=== PATIENT | male | born 1975 ===

== ENCOUNTER → 2020-02-21 14:18 | Outpatient (BNVA) | payer MEDICAID, SELFPAY | PROVIDERS: PCP Internal Medicine; Visit Provider Urology | DX: Z76.89 Persons encountering health services in other specified circumstances (principal) ==

== ENCOUNTER → 2020-02-28 15:25 | Outpatient (BNVA) | payer MEDICAID, SELFPAY | PROVIDERS: PCP Internal Medicine; Visit Provider Urology | DX: Z48.811 Encounter for surgical aftercare following surgery on the nervous system (principal); N39.41 Urge incontinence | CPT/HCPCS: 99212 ==

== ENCOUNTER 2020-02-29 06:24 | Outpatient (REF) | payer MEDICAID, SELFPAY | END 2020-02-29 06:25 | disposition home or self-care (01) | LOC: HO.LAB 06:24 | PROVIDERS: PCP Internal Medicine; Visit Provider Internal Medicine | DX: Z20.828 Contact with and (suspected) exposure to other viral communicable diseases (principal) | CPT/HCPCS: 87635 ==

== ENCOUNTER 2020-03-13 07:05 | Day surgery (SDC) | payer MEDICAID, SELFPAY ==
[2020-03-01 15:33] VITALS: BMI 26.1
--- NOTE | 2020-03-12 08:49 | HO.ANESPROP2 ---
Documented by User: Ashley Moreno 03/12/20 08:51 HPI - Anesthesia Eval Consult details Narrative: 44yo M for Interstim Generator Implant s/p interstim trial 01/2020 with [employer] PMFSH Past Medical History Medical History Abdominal lipoma Asthma Chronic back pain Depression Mood disorder Right hemiparesis Urinary retention Family History Family History Father Colon polyp Mother Colon polyp Hypertension Surgical History Surgical History H/O toe surgery History of ankle surgery History of prostate surgery Hx of colonoscopy Hx of exploratory laparotomy Social History Social History (Updated 03/12/20 @ 08:51 by Ashley Moreno) Smoking Status: Never smoker Use of substances other than those prescribed or required for medical reasons: Yes Substance Use Type: Marijuana Substance Use Type Other:: Marijuana- Oil- Vapes States Medical Substance Use Frequency: Daily Advance Directives: No Advance Directives Information Provided: No Advance Directives on File: No Recently lost weight without trying: No Meds Allergies Allergy/AdvReac Type Severity Reaction Status Date / Time ENVIROMENTAL Allergy Intermediate SNEEZING, Uncoded 03/01/20 15:26 COUGH, SOB Home Medications Medication Instructions Recorded Confirmed Type amitriptyline 75 mg tablet 75 mg PO BEDTIME 02/18/20 03/01/20 History clonazepam 0.5 mg tablet 0.5 mg PO BID 02/18/20 03/01/20 History duloxetine 30 mg capsule,delayed 30 mg PO DAILY 02/18/20 03/01/20 History release fluticasone propionate 50 1 spray INTRANASAL DAILY 02/18/20 03/01/20 History mcg/actuation nasal spray,suspension ibuprofen 800 mg tablet 800 mg PO Q8H 02/18/20 03/01/20 History loratadine 10 mg tablet 10 mg PO DAILY 02/18/20 03/01/20 History oxybutynin chloride 15 mg 15 mg PO DAILY 02/18/20 03/01/20 History tablet,extended release 24 hr tadalafil 20 mg tablet 20 mg PO DAILY PRN 02/18/20 03/01/20 History albuterol sulfate [Ventolin HFA] 2 puff INHALATION 6XD PRN 03/01/20 03/01/20 History Exam Exam Date and Time: March 12, 2020 0849 Height,Weight and Vital Signs: Height 6 ft Weight 87.3 kg Assessment and Plan Assessment Anesthesia Assessment: Chart Reviewed Documented by User: Fang Robbins 03/13/20 09:06 PMFSH Past Medical History Medical History Abdominal lipoma Asthma Chronic back pain Depression Mood disorder Right hemiparesis Urinary retention Family History Family History Father Colon polyp Mother Colon polyp Hypertension Surgical History Surgical History H/O toe surgery History of ankle surgery History of prostate surgery Hx of colonoscopy Hx of exploratory laparotomy Social History Social History (Updated 03/12/20 @ 08:51 by Ashley Moreno) Smoking Status: Never smoker Use of substances other than those prescribed or required for medical reasons: Yes Substance Use Type: Marijuana Substance Use Type Other:: Marijuana- Oil- Vapes States Medical Substance Use Frequency: Daily Advance Directives: No Advance Directives Information Provided: No Advance Directives on File: No Recently lost weight without trying: No Meds Allergies Allergy/AdvReac Type Severity Reaction Status Date / Time ENVIROMENTAL Allergy Intermediate SNEEZING, Uncoded 03/01/20 15:26 COUGH, SOB Home Medications Medication Instructions Recorded Confirmed Type amitriptyline 75 mg tablet 75 mg PO BEDTIME 02/18/20 03/01/20 History clonazepam 0.5 mg tablet 0.5 mg PO BID 02/18/20 03/01/20 History duloxetine 30 mg capsule,delayed 30 mg PO DAILY 02/18/20 03/01/20 History release fluticasone propionate 50 1 spray INTRANASAL DAILY 02/18/20 03/01/20 History mcg/actuation nasal spray,suspension ibuprofen 800 mg tablet 800 mg PO Q8H 02/18/20 03/01/20 History loratadine 10 mg tablet 10 mg PO DAILY 02/18/20 03/01/20 History oxybutynin chloride 15 mg 15 mg PO DAILY 02/18/20 03/01/20 History tablet,extended release 24 hr tadalafil 20 mg tablet 20 mg PO DAILY PRN 02/18/20 03/01/20 History albuterol sulfate [Ventolin HFA] 2 puff INHALATION 6XD PRN 03/01/20 03/01/20 History Exam Airway Mallampati Class: II TM Dist: >3cm Neck ROM: Full Assessment and Plan Assessment Anesthesia Assessment: Anesthesia Plan Discussed and Chart Reviewed Final Anesthetic Review NPO: Yes ASA Class: II Final Preanesthetic Review: No Changes in Pt Med Stat, Meds/Allgs Chart Reviewed, Consent Obtained/Reviewed and Anes Risks/Benef Reviewed Patient Risk: Low Procedure Risk: Low Assessment/Block/Sedation in SS: Assess/Block/Sedation-SS Anesthetic Plan Anesthetic Plan: MAC: Disposition: Standard PACU
[2020-03-13 07:57] VITALS: BP 121/73; PULSE 62; RESP 18; TEMP 36.1; O2SAT 96
[2020-03-13] MEDS: Albuterol Sulfate (0.083%) 2.5 MG/3 ML VIAL.NEB INHALE (08:13)
[2020-03-13] MEDS: ceFAZolin Sodium/Dextrose,Iso 2 GM/50 ML PIGGYBACK IV (08:16)
[2020-03-13] MEDS: Lactated Ringers 1,000 ML 100 ML IVCONT (08:16)
--- NOTE | 2020-03-13 08:24 | MHC.SHP ---
Pre-Procedural Eval Section A The patient is an INPATIENT: No Changes since office visit: Yes Patient answered all questions; No Cold of Flu in the past 2 weeks, No New Medical Problems and No Changes in Medication Section B Chief Complaint: URINARY RETENTION Details of Present Illness: urinary retention Relevant Family History (Specify if Yes): No Relevant Social History: None Present Medications: see Short Stay Collaborative assessment Medical History: No relevant PMH History of Previous Operations: No relevant previous surgery (stage 1 intersdtim) Allergies: Allergies Allergy/AdvReac Type Severity Reaction Status Date / Time ENVIROMENTAL Allergy Intermediate SNEEZING, Uncoded 03/01/20 15:26 COUGH, SOB Review of Systems Sugical H&P ROS: Negative: Constitution, Cardiovascular, Respiratory, Neurological, Psychiatric, Hem-Onc, Allergic/Immunologic, Gastrointestinal, Genitourinary, Musculoskeletal, Integumentary, Endocrine and Eyes/Ears/Nose/Throat Exam Surgical H&P Exam: Normal: HEENT, Normal: Heart, Normal: Lungs, Normal: Extremities, Normal: Abdomen, Normal: Skin and Normal: Neurological Plan Diagnosis/Plan: Change (remove interstim 1) Patient has been examined and remains a candidate for the planned procedure
--- NOTE | 2020-03-13 09:46 | OP_ITS ---
SURGEON: Vitaly Snyder III, MD PREOPERATIVE DIAGNOSIS: Urinary retention. POSTOPERATIVE DIAGNOSIS: Failed InterStim stage I. PROCEDURE PERFORMED: Removal of InterStim stage I. ESTIMATED BLOOD LOSS: None. COMPLICATIONS: None. ANESTHESIA: MAC, local. ASSISTANTS: SPECIMENS: None. DESCRIPTION OF PROCEDURE: The patient was taken to the operating room. After adequate anesthesia was obtained, had a time-out done demonstrating correct patient and correct procedure. Following this, the patient underwent injection of local in previous right buttock incision. Bovie cautery was used to dissect down to the wires. Wires were identified, brought out through the incision, and truncated, circulating nurse removed the external lead. The patient had irrigation of his wounds and subsequently had closure of his wounds. The patient tolerated the procedure well. There were no complications. MD WENCESLAO Boyce III/MODL / [id number] MTDD
--- NOTE | 2020-03-13 09:49 | PM.OP ---
Brief Operative Note Date of procedure: 03/13/20 Pre-op diagnosis: urinary retention Post-op diagnosis: other (failed interstim stage 1) Procedure: removal of interstim stage 1 Surgeon: Vitaly Snyder III, MD Anesthesia: MAC and local Estimated blood loss (mL): 0 Pathology: none sent Condition: stable Disposition: same day
[2020-03-13 10:00] VITALS: BP 117/68; PULSE 53; RESP 18; TEMP 36.4; O2SAT 98
[2020-03-13 10:05] VITALS: BP 113/72; PULSE 52; RESP 17; O2SAT 98
[2020-03-13 10:20] VITALS: BP 128/70; PULSE 54; RESP 17; O2SAT 99
== END 2020-03-13 11:15 | disposition home or self-care (01) ==
PROVIDERS: PCP Internal Medicine; Visit Provider Urology
PROC: (CPT 64585; principal; 2020-03-13 09:00)
DX: R33.9 Retention of urine, unspecified (principal); N52.9 Male erectile dysfunction, unspecified
CPT/HCPCS: 64585; 94640; J0690; J2405; J3010

== ENCOUNTER → 2020-05-31 13:00 | Outpatient (BNVA) | payer MEDICAID, SELFPAY | PROVIDERS: PCP Internal Medicine; Visit Provider Urology | DX: N39.41 Urge incontinence (principal) | CPT/HCPCS: 99212 ==

== ENCOUNTER → 2020-06-04 08:25 | Outpatient (BNVA) | payer MEDICAID, SELFPAY | PROVIDERS: Visit Provider Internal Medicine Gastroenterology ==

== ENCOUNTER 2020-07-24 15:00 | Outpatient (REF) | payer MEDICAID, SELFPAY ==
--- NOTE | ~2020-07-24 | XR_ITS ---
EXAMINATION: XR KNEE, LEFT CLINICAL INFORMATION: Left knee pain. COMPARISON: None TECHNIQUE: Four views of the left knee. FINDINGS: Bones and soft tissues are normal. No fracture or joint effusion. Alignment is anatomic. Joint spaces are well maintained. No abnormal soft tissue calcification. XR/XR knee LT 4V IMPRESSION: Unremarkable left knee.
== END 2020-07-24 15:01 | disposition home or self-care (01) ==
LOC: HO.XRAY 15:00
PROVIDERS: PCP Internal Medicine; Visit Provider Internal Medicine
DX: M25.562 Pain in left knee (principal)
CPT/HCPCS: 73564

== ENCOUNTER 2020-08-07 10:00 | Outpatient (RCR) | payer MEDICAID, SELFPAY ==
--- NOTE | 2020-04-20 16:31 | MHC.PT.EP ---
[facility] [place] Office [place] [facility] [place] Office [address] [place] Jain [address] [phone] F: [phone] F: [phone] F: [phone] F: [phone] Physical Therapy Plan of Care Date of Evaluation: 04/20/20 Date of Surgery: N/A Diagnosis: G81.90: hemiplegia, unspecified affecting unspecified side hemiplegia Assessment: pt has been in and out of physical therapy since his traumatic injury approx. 20 years ago. pt stated over the past few years he has noticed an improvement in his functional mobility but is limited by back pain and radicular symptoms. He is motivated and would benefit from a higher level strengthening and functional training program to promote independence and decrease caregiver burden. pt presents to physical therapy with pain, decreased range of motion, decreased strength, impaired functional mobility, impaired postural awareness, and gait deviations. pt is a good candidate for skilled PT due to age, potential remediation of impairments, typical disease/condition progression and prognosis, comorbidities, and motivation. pt would benefit from tailored strengthening and stretching exercise program, functional training, gait training, postural re-training, neuromuscular re-education, modalities as needed for pain, equipment safety demonstration. Frequency and Duration: The patient will be seen 2x/wk for 4 wks Short Term Goals: pt will be I w/ HEP to promote self-management of condition. pt will improve B hip flexion strength by 1 MMT grade to promote ease in leg lifting w/ supine<>sit transfers. Prison Goals: pt will report statistically significant improvement in self-reported outcome measure, LEFI, to promote functional independence and decrease caregiver burden. pt will report <2/10 low back pain w/ standing >30 min to promote improved tolerance for participation in ADLs. Treatment Plan: Modalities to reduce pain, spasms and effusion. Manual therapy to restore motion and function. Therapeutic exercise to improve strength and flexibility. Neuromuscular re-education for posture and balance. Therapeutic activities to return to functional activities of daily living. Please sign and return to therapist. Thank you for your referral.
== END 2020-08-07 10:54 | disposition other institution (70) ==
LOC: HO.PT 10:00
PROVIDERS: PCP Internal Medicine; Visit Provider Internal Medicine
DX: G81.90 Hemiplegia, unspecified affecting unspecified side (principal)
CPT/HCPCS: 97110; 97112; 97162; 97530

== ENCOUNTER → 2020-08-09 14:59 | Outpatient (BNVA) | payer MEDICAID, SELFPAY | PROVIDERS: PCP Internal Medicine; Visit Provider Anesthesiology | DX: M46.1 Sacroiliitis, not elsewhere classified (principal); G90.511 Complex regional pain syndrome I of right upper limb; G89.4 Chronic pain syndrome; Z79.899 Other long term (current) drug therapy | CPT/HCPCS: 99202 ==

== ENCOUNTER → 2020-09-10 14:59 | Outpatient (BNVA) | payer MEDICAID, SELFPAY | PROVIDERS: Visit Provider Internal Medicine Gastroenterology | DX: K59.09 Other constipation (principal); R14.0 Abdominal distension (gaseous); Z86.010 Personal history of colon polyps | CPT/HCPCS: 99212 ==

== ENCOUNTER 2020-09-11 06:29 | Outpatient (REF) | payer MEDICAID, SELFPAY ==
--- NOTE | ~2020-09-11 | FL_ITS ---
EXAMINATION: Intraoperative fluoroscopy CLINICAL INFORMATION: Sacroiliitis COMPARISON: None TECHNIQUE: Intraoperative fluoroscopy was provided for use by Liana Ahmadi NP. A total of 2 images were saved to PACS. A radiologist was not present during imaging. Today's dictation is only for administrative purposes to document intraoperative fluoroscopic usage. TOTAL FLUOROSCOPIC TIME: 0.3 minutes FL/FL guidance in treatment room FINDINGS~\^^ Intraoperative fluoroscopy provided for use by Liana Ahmadi NP. Please see operative note for detailed findings.
== END 2020-09-11 06:30 | disposition home or self-care (01) ==
LOC: HO.RADIR 06:29
PROVIDERS: Visit Provider Anesthesiology
DX: M46.1 Sacroiliitis, not elsewhere classified (principal); G90.511 Complex regional pain syndrome I of right upper limb; G89.4 Chronic pain syndrome
CPT/HCPCS: 27096; J3300; Q9967

== ENCOUNTER 2020-10-16 10:42 | Day surgery (SDC) | payer MEDICAID, SELFPAY ==
[2020-10-09 11:02] VITALS: BMI 28.5
--- NOTE | 2020-10-12 08:43 | HO.ANESPROP2 ---
Documented by User: Ashley Moreno 10/12/20 08:46 HPI - Anesthesia Eval Consult details Narrative: 44yo M for Colonoscopy PMFSH Active Problems Active Problems: All Active Problems (Updated 10/09/20 @ 10:56 by Sonia Ortez) Urgency incontinence (Acute) Urgency of micturition (Acute) Chronic constipation (Acute) Abdominal bloating (Acute) History of colon polyps (Acute) Chronic pain syndrome (Acute) Complex regional pain syndrome i of right upper limb (Acute) Sacroiliitis (Acute) Past Medical History Medical History (Updated 10/16/20 @ 11:02 by Ashlyn Matthews) Abdominal lipoma Asthma Chronic back pain Chronic pain syndrome Complex regional pain syndrome i of right upper limb Depression Mood disorder Right hemiparesis Sacroiliitis Urinary retention Family History Family History Father Colon polyp Mother Colon polyp Hypertension Surgical History Surgical History H/O toe surgery History of ankle surgery History of prostate surgery History of surgery Hx of colonoscopy Hx of exploratory laparotomy Social History Social History (Updated 10/16/20 @ 11:02 by Ashlyn Matthews) Substance Use Type: Marijuana Last Used Substance: Days (ago) Last Used Substance Other:: 2 days ago-marijuana Are you DNR?: No Advance Directives Information Provided: No Recently lost weight without trying: No Eating poorly because of decreased appetite: No Nutrition Risks: No Nutritional Risk Meds Allergies Allergy/AdvReac Type Severity Reaction Status Date / Time ENVIROMENTAL Allergy Intermediate SNEEZING, Uncoded 03/01/20 15:26 COUGH, SOB Home Medications Medication Instructions Recorded Confirmed Last Taken Type amitriptyline 75 mg tablet 75 mg PO BEDTIME 02/18/20 10/09/20 Unknown History clonazepam 0.5 mg tablet 0.5 mg PO BID 02/18/20 10/09/20 Unknown History duloxetine 30 mg capsule,delayed 30 mg PO DAILY 02/18/20 10/09/20 Unknown History release ibuprofen 800 mg tablet 800 mg PO Q8H 02/18/20 10/09/20 Unknown History loratadine 10 mg tablet 10 mg PO DAILY 02/18/20 10/09/20 Unknown History albuterol sulfate [Ventolin HFA] 2 puff INHALATION 6XD PRN 03/01/20 10/09/20 Unknown History fluticasone propionate 50 1 spray INTRANASAL DAILY PRN 06/04/20 10/09/20 Unknown History mcg/actuation nasal spray,suspension gabapentin 800 mg tablet 800 mg PO DAILY 08/09/20 10/09/20 Unknown History Exam Exam Date and Time: October 12, 2020 0843 Height,Weight and Vital Signs: Height 6 ft Weight 95.254 kg Assessment and Plan Assessment Anesthesia Assessment: Chart Reviewed Documented by User: Ashlyn Matthews 10/16/20 11:05 [facility] Past Medical History Medical History (Updated 10/16/20 @ 11:02 by Ashlyn Matthews) Abdominal lipoma Asthma Chronic back pain Chronic pain syndrome Complex regional pain syndrome i of right upper limb Depression Mood disorder Right hemiparesis Sacroiliitis Urinary retention Family History Family History Father Colon polyp Mother Colon polyp Hypertension Family history of problems with anesthesia: No Surgical History Surgical History H/O toe surgery History of ankle surgery History of prostate surgery History of surgery Hx of colonoscopy Hx of exploratory laparotomy History of Problems with Anesthesia: No Social History Social History (Updated 10/16/20 @ 11:02 by Ashlyn Matthews) Substance Use Type: Marijuana Last Used Substance: Days (ago) Last Used Substance Other:: 2 days ago-marijuana Are you DNR?: No Advance Directives Information Provided: No Recently lost weight without trying: No Eating poorly because of decreased appetite: No Nutrition Risks: No Nutritional Risk Meds Allergies Allergy/AdvReac Type Severity Reaction Status Date / Time ENVIROMENTAL Allergy Intermediate SNEEZING, Uncoded 03/01/20 15:26 COUGH, SOB Home Medications Medication Instructions Recorded Confirmed Last Taken Type amitriptyline 75 mg tablet 75 mg PO BEDTIME 02/18/20 10/09/20 Unknown History clonazepam 0.5 mg tablet 0.5 mg PO BID 02/18/20 10/09/20 Unknown History duloxetine 30 mg capsule,delayed 30 mg PO DAILY 02/18/20 10/09/20 Unknown History release ibuprofen 800 mg tablet 800 mg PO Q8H 02/18/20 10/09/20 Unknown History loratadine 10 mg tablet 10 mg PO DAILY 02/18/20 10/09/20 Unknown History albuterol sulfate [Ventolin HFA] 2 puff INHALATION 6XD PRN 03/01/20 10/09/20 Unknown History fluticasone propionate 50 1 spray INTRANASAL DAILY PRN 06/04/20 10/09/20 Unknown History mcg/actuation nasal spray,suspension gabapentin 800 mg tablet 800 mg PO DAILY 08/09/20 10/09/20 Unknown History Exam Height,Weight and Vital Signs: Vital Signs Temp Pulse Resp BP Pulse Ox 10/16/20 10:57 97 F 58 18 120/74 98 Airway Mallampati Class: II (Narrow arched palate) TM Dist: >3cm Neck ROM: Full Loose/Missing/Broken Teeth: No Heart: RRR Lungs: CTAB Assessment and Plan Assessment Anesthesia Assessment: Anesthesia Plan Discussed and Chart Reviewed Final Anesthetic Review NPO: Yes ASA Class: II Final Preanesthetic Review: No Changes in Pt Med Stat, Meds/Allgs Chart Reviewed, Consent Obtained/Reviewed and Anes Risks/Benef Reviewed Patient Risk: Low Procedure Risk: Low Assessment/Block/Sedation in SS: Assess/Block/Sedation-SS Anesthetic Plan Anesthetic Plan: MAC: Disposition: Standard PACU
[2020-10-16 10:57] VITALS: BP 120/74; PULSE 58; RESP 18; TEMP 36.1; O2SAT 98
--- NOTE | 2020-10-16 11:03 | PC.NURSE ---
pt has complex regional pain right arm no b/p iv blood drawn on right
[2020-10-16] MEDS: Lactated Ringers 1,000 ML 100 ML IVCONT (11:08)
--- NOTE | 2020-10-16 11:26 | P.OP_ITS ---
Operative Note Operative Note Date of Service: 10/16/20 Narrative: Pre-op diagnosis: Colon cancer screening, history of colon polyps Post-op diagnosis: other (Colon polyps, diverticulosis, hemorrhoids) Procedure: COLONOSCOPY TO CECUM WITH BIOPSIES AND SNARE POLYPECTOMY Consent: Indications for the procedure and potential complications of bleeding, perforation, reaction to medications and missed diagnosis were discussed with the patient and informed consent was obtained. Instrument: Olympus PCF H 190 L variable stiffness pediatric colonoscope Monitoring: Vital signs and clinical assessment, intermittent blood pressure monitoring, continuous EKG monitoring, Pulse oximetry and Carbon Dioxide monitoring were done throughout the procedure. Colon withdrawl time was 31 minutes. Procedure: The patient was placed in the left lateral decubitis position and pre-procedure medications were administered. After a digital rectal examination of the ano-rectum, the video colonoscope was inserted into the rectum and advanced through the colon to the cecum. The colonoscope was slowly withdrawn in a retrograde panoramic fashion and the colon mucosa was carefully examined including a retroflexed view of the rectum. Findings and interventions are described below. Procedure Difficulty: Without difficulty Findings: Terminal Ileum: The distal 5 cm was examined and appeared normal Cecum: Scattered superficial ulcers with white exudate in the cecum and right colon - random biopsies were obtained Ascending Colon: A 10-12 mm sessile polyp removed with a hot snare. Scattered superficial ulcers with white exudate in the cecum and right colon - random bi opsies were obtained Transverse Colon: Normal Descending Colon: Moderate diverticulosis Sigmoid Colon: Moderate diverticulosis Rectum: 6-7 mm diminutive appearing polyp which was removed with the cold biopsy Ano-rectum: Moderate internal hemorrhoids Colon preparation: Good after copious irrigation Impression and Post Procedure Diagnosis: Colonoscopy Findings: Two small to medium sized polyps removed Moderate diverticulosis seen in the left colon Moderate hemorrhoids on retroflexed exam. Plan: Await pathology results Patient has an appointment on 11/15/20 in the GI [facility] with Natalie Ross M.D.. Repeat Colonoscopy interval based on path results - in 3 years if polyps are adenomatous and due to a hx of adenomatous colon polyps Above findings were reviewed with the patient and colon polyps and diverticulosis handouts were given in the discharge area Surgeon: Natalie Ross MD Was an Bin Tripper Operator used for this Procedure?: No Bin Tripper Operator: Herb Herring Estimated blood loss (mL): 0 Pathology: other (A-RIGHT COLON BXS R/O IBD B- ASCENDING COLON POLYP C- LEFT COLON BXS R/O IBD D- RECTAL POLYP) Condition: stable Disposition: PACU
--- NOTE | 2020-10-16 11:27 | MHC.SHP ---
Pre-Procedural Eval Section A The patient is an INPATIENT: No The History & Physical has been completed within 30 days and I have reviewed it.: No Section B Chief Complaint: Chronic Constipation Relevant Family History (Specify if Yes): Yes Relevant Social History: None Present Medications: see Short Stay Collaborative assessment Medical History: Significant History (Abdominal lipoma Asthma Chronic back pain Chronic pain syndrome Complex regional pain syndrome i of right upper limb Depression Mood disorder Right hemiparesis Sacroiliitis Urinary retention) History of Previous Operations: Relevant previous surgery/procedure and date(s) (H/O toe surgery History of ankle surgery History of prostate surgery Hx of colonoscopy Hx of exploratory laparotomy) Allergies: Allergies Allergy/AdvReac Type Severity Reaction Status Date / Time ENVIROMENTAL Allergy Intermediate SNEEZING, Uncoded 03/01/20 15:26 COUGH, SOB Review of Systems Sugical H&P ROS: Negative: Cardiovascular and Respiratory and Yes, Specify: Gastrointestinal (constipation) Exam Surgical H&P Exam: Normal: Heart, Normal: Lungs, Normal: Extremities and Normal: Abdomen Plan Diagnosis/Plan: Unchanged I have reviewed the history and physical and performed a pertinent physical examination on my patient. No changes have occurred unless specified.
[2020-10-16 12:28] VITALS: BP 108/65; PULSE 50; RESP 16; TEMP 36.4; O2SAT 100
[2020-10-16 12:43] VITALS: BP 121/92; PULSE 64; RESP 17; TEMP 36.4; O2SAT 99
== END 2020-10-16 13:20 | disposition home or self-care (01) ==
PROVIDERS: PCP Internal Medicine; Visit Provider Internal Medicine Gastroenterology
PROC: 0DJD8ZZ Inspection of Lower Intestinal Tract, Via Natural or Artificial Opening Endoscopic (ICD-10-PCS; CPT 45378; principal; 2020-10-16 11:50)
DX: Z12.11 Encounter for screening for malignant neoplasm of colon (principal); Z86.010 Personal history of colon polyps; K57.30 Diverticulosis of large intestine without perforation or abscess without bleeding; K64.8 Other hemorrhoids; K59.09 Other constipation; D12.2 Benign neoplasm of ascending colon; K62.1 Rectal polyp; J45.909 Unspecified asthma, uncomplicated; M54.9 Dorsalgia, unspecified; G81.91 Hemiplegia, unspecified affecting right dominant side; Z87.828 Personal history of other (healed) physical injury and trauma; G90.511 Complex regional pain syndrome I of right upper limb; Z79.51 Long term (current) use of inhaled steroids; Z79.899 Other long term (current) drug therapy; N40.0 Benign prostatic hyperplasia without lower urinary tract symptoms
CPT/HCPCS: 45385; 45380; 88305

== ENCOUNTER → 2020-11-15 09:42 | Outpatient (BNVA) | payer MEDICAID, SELFPAY | PROVIDERS: PCP Internal Medicine; Referring Provider Internal Medicine; Visit Provider Internal Medicine Gastroenterology | DX: K59.09 Other constipation (principal); R14.0 Abdominal distension (gaseous); Z86.010 Personal history of colon polyps | CPT/HCPCS: 99212 ==

== ENCOUNTER → 2021-03-21 09:32 | Outpatient (BNVA) | payer MEDICAID, SELFPAY | PROVIDERS: Referring Provider Internal Medicine; Visit Provider Internal Medicine Gastroenterology | DX: K59.09 Other constipation (principal); R14.0 Abdominal distension (gaseous); Z86.010 Personal history of colon polyps | CPT/HCPCS: 99212 ==

== ENCOUNTER 2021-09-05 10:50 | Outpatient (REF) | payer MEDICAID, SELFPAY ==
--- NOTE | ~2021-09-05 | XR_ITS ---
EXAMINATION: XR knee RT 3V CLINICAL INFORMATION: Pain COMPARISON: None TECHNIQUE: 4 views of the knee XR/XR knee RT 3V FINDINGS/IMPRESSION: No acute fracture or dislocation. Joint spaces are maintained. No joint effusion. Soft tissues are unremarkable.
== END 2021-09-05 10:51 | disposition home or self-care (01) ==
LOC: HO.XRAY 10:50
PROVIDERS: PCP Internal Medicine; Visit Provider Internal Medicine
DX: M25.561 Pain in right knee (principal)
CPT/HCPCS: 73562

== ENCOUNTER → 2021-10-03 09:25 | Outpatient (BNVA) | payer MEDICAID, SELFPAY | PROVIDERS: Referring Provider Internal Medicine; Visit Provider Internal Medicine Gastroenterology | DX: K59.09 Other constipation (principal); R14.0 Abdominal distension (gaseous); Z86.010 Personal history of colon polyps | CPT/HCPCS: 99212 ==

== ENCOUNTER 2021-11-14 11:55 | Outpatient (REF) | payer MEDICAID, SELFPAY ==
--- NOTE | ~2021-11-14 | XR_ITS ---
EXAMINATION: XR CHEST CLINICAL INFORMATION: Cough. Chest 04/06/2016 COMPARISON: None TECHNIQUE: 2 views of the chest were obtained. FINDINGS: No significant abnormality is noted involving the heart, lungs, mediastinum, bony thorax or soft tissues. XR/XR chest 2V IMPRESSION: Unremarkable chest examination.
== END 2021-11-14 11:56 | disposition home or self-care (01) ==
LOC: HO.XRAY 11:55
PROVIDERS: Visit Provider Family Medicine
DX: R05.9 Cough, unspecified (principal)
CPT/HCPCS: 71046

== ENCOUNTER → 2022-01-16 10:34 | Outpatient (BNVA) | payer MEDICAID, SELFPAY | PROVIDERS: PCP Internal Medicine; Visit Provider Internal Medicine Gastroenterology | DX: K59.09 Other constipation (principal); R14.0 Abdominal distension (gaseous); Z86.010 Personal history of colon polyps | CPT/HCPCS: 99212 ==

== ENCOUNTER 2022-11-05 09:23 | Outpatient (REF) | payer MEDICAID, SELFPAY ==
--- NOTE | ~2022-11-05 | XR_ITS ---
EXAMINATION: XR CHEST CLINICAL INFORMATION: Cough COMPARISON: Previous x-ray October 2021 TECHNIQUE: 2 views of the chest were obtained. FINDINGS: The cardiac and mediastinal contours are stable. The lungs are clear. No pleural effusion or pneumothorax. Radiopaque foreign bodies at the right shoulder. XR/XR chest 2V IMPRESSION: No evidence for acute disease in the chest.
== END 2022-11-05 09:24 | disposition home or self-care (01) ==
LOC: HO.XRAY 09:23
PROVIDERS: Absent Provider Internal Medicine; PCP Internal Medicine; Visit Provider Internal Medicine
DX: R05.2 Subacute cough (principal)
CPT/HCPCS: 71046

== ENCOUNTER 2022-12-10 16:43 | Emergency (ER) | payer MEDICAID, SELFPAY ==
--- NOTE | ~2022-12-10 | XR_ITS ---
EXAMINATION: XR CHEST CLINICAL INFORMATION: Cough shortness of breath nausea vomiting COMPARISON: Chest radiograph from 11/04/2022 TECHNIQUE: 2 views of the chest were obtained. FINDINGS: No focal consolidation. No pneumothorax. Trachea is midline. Cardiac mediastinal silhouette is stable. No large pleural effusion. Osseous structures are intact. Redemonstration of radiopaque material overlying the right glenohumeral joint. XR/XR chest 2V IMPRESSION: No acute cardiopulmonary process.
--- NOTE | 2022-12-10 16:45 | ECG_ITS ---
Test Reason : CHEST PAIN Blood Pressure : / mmHG Vent. Rate : 091 BPM Atrial Rate : 091 BPM P-R Int : 134 ms QRS Dur : 084 ms QT Int : 348 ms P-R-T Axes : 083 038 036 degrees QTc Int : 428 ms Normal sinus rhythm with sinus arrhythmia Normal ECG When compared with ECG of 06-DEC-2010 20:17, No significant change was found Referred By: Generic ED Physician Electronically Signed By:CHETAN KITCHEN MD
[2022-12-10 17:09] VITALS: BP 139/86; PULSE 94; RESP 24; TEMP 36.1; O2SAT 97; BMI 28.3
--- NOTE | 2022-12-10 17:09 | ED_ITS ---
HPI - SOB/Dyspnea General Chief Complaint: Dyspnea Stated Complaint: Chest pain/SOB/asthma Time Seen by Provider: 12/10/22 21:36 Source: patient, RN notes reviewed and old records reviewed Mode of arrival: ambulatory History of Present Illness HPI Narrative: 47-year-old male with a past medical history of asthma, depression, right hemiparesis, sacroiliitis, urinary retention, presenting to the ED complaining nonproductive cough, chest discomfort/tightness, SOB, wheezing, and post-tussive emesis x 2 days. Admit symptoms worse at night and during coughing fits. Currently takes montelukast and albuterol inhaler at home without relief. Travel to [facility] last week, denies other recent travel or recent steroid use. Denies fever/chills, abdominal pain, pedal edema, calf pain, cigarette smoking, history of clots MD elicited complaint: shortness of breath and cough Related Data Home Medications Medication Instructions Recorded Confirmed amitriptyline 75 mg tablet 75 mg PO BEDTIME 02/18/20 01/16/22 clonazepam 0.5 mg tablet 0.5 mg PO BID 02/18/20 01/16/22 duloxetine 30 mg capsule,delayed 30 mg PO DAILY 02/18/20 01/16/22 release (Cymbalta) ibuprofen 800 mg tablet 800 mg PO Q8H 02/18/20 01/16/22 loratadine 10 mg tablet (Claritin) 10 mg PO DAILY 02/18/20 01/16/22 albuterol sulfate 90 mcg/actuation 2 puff inhalation 6XD PRN Wheezing 03/01/20 01/16/22 aerosol inhaler (Ventolin HFA) gabapentin 800 mg tablet 800 mg PO DAILY 08/09/20 01/16/22 montelukast 10 mg tablet 10 mg PO BEDTIME 10/03/21 01/16/22 (Singulair) cetirizine 10 mg tablet 10 mg PO DAILY PRN 01/16/22 01/16/22 clotrimazole 1 % topical cream appl topical 01/16/22 01/16/22 fluticasone propionate 110 1 puff inhalation BID 01/16/22 01/16/22 mcg/actuation HFA aerosol inhaler (Flovent HFA) trazodone 50 mg tablet 50 mg PO BEDTIME PRN 01/16/22 01/16/22 Previous Rx's Medication Instructions Recorded oxybutynin chloride 15 mg 15 mg PO DAILY #30 tabs 05/30/20 tablet,extended release 24 hr tamsulosin 0.4 mg capsule 0.4 mg PO DAILY 90 days #90 caps 01/28/21 polyethylene glycol 3350 17 17 g PO DAILY 60 days #1,020 grams 01/16/22 gram/dose oral powder (Miralax) sennosides 8.6 mg tablet (senna) 17.2 mg PO DAILY 60 days #120 tabs 01/16/22 albuterol sulfate 2.5 mg/0.5 mL 5 mg inhalation Q4H PRN shortness 12/11/22 solution for nebulization of breath or wheezing #30 ea albuterol sulfate 90 mcg/actuation 2 puff inhalation Q4-6H PRN 12/11/22 aerosol inhaler shortness of breath or wheezing #6.7 grams prednisone 20 mg tablet 40 mg PO DAILY 5 days #10 tabs 12/11/22 Allergies Allergy/AdvReac Type Severity Reaction Status Date / Time ENVIROMENTAL Allergy Intermediate SNEEZING, Uncoded 12/10/22 17:14 COUGH, SOB Review of Systems Review of Systems: Constitutional: No Fever, No Chills ENT/Mouth: No Ear Pain, No Nasal Congestion, No sore throat, No Rhinorrhea, No Swallowing Difficulty Cardiovascular: + Chest Pain, + SOB Respiratory: + Cough, No Sputum, + Wheezing Gastrointestinal: + Nausea, + Vomiting, No Diarrhea, No Constipation, No Abdominal pain Genitourinary: No Dysuria, No Urinary Frequency, No Hematuria, No Flank Pain Musculoskeletal: No joint pain, No Myalgias, No Joint Swelling Skin: No Skin Lesions, No rash Neuro: No Weakness, No Numbness, No Paresthesias Yes all other systems are reviewed and are negative Constitutional: Constitutional: Reports as per [facility] Past Medical History Attestation statement: The following information was validated with the patient. Source: old records reviewed Medical History Abdominal lipoma Asthma Chronic back pain Chronic pain syndrome Complex regional pain syndrome i of right upper limb Depression Mood disorder Right hemiparesis Sacroiliitis Urinary retention Surgical History H/O toe surgery History of ankle surgery History of prostate surgery History of surgery Hx of colonoscopy Hx of colonoscopy Hx of exploratory laparotomy Family History Family History Father Colon polyp Mother Colon polyp Hypertension Social History Social History Household Members: None Alcohol intake: never Patient Tobacco Use Status: Never used Tobacco Smoked in Last 30 Days: No Use of substances other than those prescribed or required for medical reasons: Yes Substance Use Type: Marijuana Substance Use Frequency: Weekly Advance Directives: No Advance Directives Information Provided: No Physical Exam Vital Signs: Vital Signs: Last Vital Signs Temp 97 F 12/10/22 17:09 Pulse 106 H 12/10/22 22:27 Resp 20 12/10/22 22:27 BP 150/87 H 12/10/22 20:23 Pulse Ox 96 12/10/22 20:23 O2 Del Method Room Air 12/10/22 20:23 BMI result Body Mass Index 28.3 Const: General: cooperative, healthy appearing and no acute distress Orientation/consciousness: patient oriented x3 Limitations: no limitations HEENT: Head: Yes normal to inspection and Yes atraumatic Ears: hearing grossly normal bilaterally General nose exam: Normal external nose present Face and sinus: Yes normal facial exam Eyes: General: appearance normal, both eyes and all related structures EOM: EOMs intact bilaterally Neck: Neck: Yes normal visual inspection and Yes no meningeal signs Resp: Effort & Inspection: normal respiratory effort, no respiratory distress and no stridor Auscultation: wheezes expiratory wheezes and throughout Cardio: Rate: regular rate Heart sounds: S1 normal heart sound present and S2 normal heart sound present GI: Inspection: Yes normal to inspection Palpation (GI): Soft to palpation, nontender, no guarding and not rigid : General: Yes no CVA tenderness Back/Spine/Pelvis: Back: no CVA tenderness Skin: Rashes: no rashes Wounds: no wounds Neuro: General: patient oriented x3, tone normal and no meningeal signs Gait exam (Neuro): Normal gait present Extrem: General: Yes normal to inspection, Yes no pedal edema and Yes no calf tenderness Course Course Course Narrative: RME - 47 yo male with history of asthma, chronic pain syndrome, sacroilitis, c onstipation who presents to the ER for evaluation of URI symptoms that started yesterday that developed into chest pain and SOB that have been getting worse since last night. Vomiting and coughing today. Chest pain is worse w/ coughing. Saturating well, 98% on RA and speaking in complete sentences but diffusely wheezy throughout on exam Plan: CXR, EKG, labs -2323--labs reassuring including negative troponin. COVID and influenza negative XR chest 2V IMPRESSION: No acute cardiopulmonary process. >0000--on re-evaluation after additional 10 mg DuoNeb and Solu-Medrol patient reports symptomatic improvement, mild residual end-expiratory wheeze appreciated however overall significantly improved. Feels safe for discharge home at this time. Results discussed with patient including worrisome signs and symptoms and strict return precautions, and when to return to the emergency department. They verbalized understanding and feel safe for discharge at this time. Medications Administered Discontinued Medications Generic Name Dose Route Start Last Admin Trade Name Freq PRN Reason Stop Dose Admin Albuterol Sulfate 10 mg 12/10/22 19:51 12/10/22 20:05 Albuterol Sulfate (0.083%) 2.5 Mg/3 Ml Vial.Neb INHALE 12/10/22 19:52 10 mg ONCE ONE Administration Albuterol Sulfate 7.5 mg/ 0 mg 12/10/22 22:11 12/10/22 22:31 Albuterol/Ipratropium 3 ml INHALE 12/10/22 22:12 7.5 each ONCE ONE Administration Methylprednisolone Sodium Succinate 125 mg 12/10/22 22:11 12/10/22 22:37 Methylprednisolone Sod Succ 125 Mg/2 Ml Vial IVPUSH 12/10/22 22:12 125 mg ONCE ONE Administration Medical Decision Making Medical Decision Making [facility] Narrative: 47-year-old male with a past medical history of asthma, depression, right hemiparesis, sacroiliitis, urinary retention, presenting to the ED complaining nonproductive cough, chest discomfort/tightness, SOB, wheezing, and post-tussive emesis x 2 days. On exam initially tachypneic, NAD, talking in complete senten ezekiel, diffuse expiratory wheeze appreciated, no pedal edema or calf tenderness. Concern for asthma exacerbation vs viral syndrome vs pneumonia. Lower suspicion for ACS/PE or CHF Plan: EKG, labs, CXR, DuoNeb, IV Solu-Medrol, re-evaluate Please refer to course for remaining clinical decision making, interpretation of labs/imaging results, and discussions with consultants and/or family members. Differential Diagnosis Differential Diagnoses: The differential diagnosis associated with the presentation includes As above Admission/Observation Consideration of admission/observation: Escalation of care including admission/observation considered Lab Data MDM Lab Attestation statement: I reviewed the patient's lab results. 12/10/22 17:05 12/10/22 17:05 Labs: Lab Results 12/10/22 12/10/22 12/10/22 Range/Units 17:05 17:05 17:05 WBC 6.6 (4.8-10.8) X10*3/uL RBC 5.18 (4.60-5.80) X10*6/uL Hgb 15.0 (14.0-18.0) g/dl Hct 43.6 (42.0-52.0) % MCV 84.2 (80.0-98.0) fL MCH 29.0 (27.0-33.0) pg MCHC 34.4 (31.0-36.0) g/dl RDW 12.5 (11.0-16.0) % Plt Count 288 (160-400) X10*3/uL MPV 10.0 (9.4-12.4) fL Immature Gran % (Auto) 0.5 H (0.0-0.4) % Neut % (Auto) 66.7 (45-73) % Lymph % (Auto) 19.8 L (20-40) % Rhea % (Auto) 7.9 (2-11) % Eos % (Auto) 4.3 H (0-4) % Baso % (Auto) 0.8 (0-2) % Lymph # (Auto) 1.3 (1.2-4.9) X10*3/uL Rhea # (Auto) 0.5 (0.1-1.2) X10*3/uL Eos # (Auto) 0.3 (0.0-0.4) X10*3/uL Baso # (Auto) 0.1 (0.0-0.2) X10*3/uL Abs Immat Gran (auto) 0.03 (0.00-0.03) X10*3/uL Absolute Neuts (auto) 4.4 (2.0-8.3) x10*3/uL Absolute Nucleated RBC 0.000 (0.0-0.012) X10*3/uL Nucleated RBC % (auto) 0.0 (0.0-0.2) /100WBC Sodium 141 (135-145) mmol/L Potassium 4.1 (3.3-5.1) mmol/L Chloride 107 (96-108) mmol/L Carbon Dioxide 22 (22-29) mmol/L Anion Gap 16 (12-20) BUN 9 (9-16) mg/dL Creatinine 0.76 (0.5-1.4) mg/dL Estim Creat Clear Calc 145.1 Estimated GFR > 60 Random Glucose 71 (60-115) mg/dL Calcium 9.8 (8.4-10.2) mg/dL Troponin I High Sens < 2.7 (<3.5-35.0) ng/L COVID-19 (GARRETT) (Negative) COVID-19 Clin Com Influenza Type A (SHABANA) (Negative) Influenza Type B (SHABANA) (Negative) Influenza A & B Note 12/10/22 12/10/22 Range/Units 20:16 20:16 WBC (4.8-10.8) X10*3/uL RBC (4.60-5.80) X10*6/uL Hgb (14.0-18.0) g/dl Hct (42.0-52.0) % MCV (80.0-98.0) fL MCH (27.0-33.0) pg MCHC (31.0-36.0) g/dl RDW (11.0-16.0) % Plt Count (160-400) X10*3/uL MPV (9.4-12.4) fL Immature Gran % (Auto) (0.0-0.4) % Neut % (Auto) (45-73) % Lymph % (Auto) (20-40) % Rhea % (Auto) (2-11) % Eos % (Auto) (0-4) % Baso % (Auto) (0-2) % Lymph # (Auto) (1.2-4.9) X10*3/uL Rhea # (Auto) (0.1-1.2) X10*3/uL Eos # (Auto) (0.0-0.4) X10*3/uL Baso # (Auto) (0.0-0.2) X10*3/uL Abs Immat Gran (auto) (0.00-0.03) X10*3/uL Absolute Neuts (auto) (2.0-8.3) x10*3/uL Absolute Nucleated RBC (0.0-0.012) X10*3/uL Nucleated RBC % (auto) (0.0-0.2) /100WBC Sodium (135-145) mmol/L Potassium (3.3-5.1) mmol/L Chloride (96-108) mmol/L Carbon Dioxide (22-29) mmol/L Anion Gap (12-20) BUN (9-16) mg/dL Creatinine (0.5-1.4) mg/dL Estim Creat Clear Calc Estimated GFR Random Glucose (60-115) mg/dL Calcium (8.4-10.2) mg/dL Troponin I High Sens (<3.5-35.0) ng/L COVID-19 (GARRETT) Negative (Negative) COVID-19 Clin Com See Note Influenza Type A (SHABANA) Negative (Negative) Influenza Type B (SHABANA) Negative (Negative) Influenza A & B Note See Note Independent Interpretation I performed an independent interpretation of an: EKG (EKG normal sinus rhythm with sinus arrhythmia at a rate of 91. LA interval 134. QTC 428. No significant change when compared to prior) Radiology Impression Discussion of test interpretation with radiology: I have reviewed the radiologist's reading. External Record Review External record reviewed: Inpatient record, Office record, Outpatient record, Prior outpatient labs, Prior outpatient radiology, Primary care record and [facility] record Tests considered The following testing was considered but not selected: As above Chronic Conditions Patient?s care impacted by: Other (Asthma) Critical Care Time Critical Care Time Critical Care Time: Yes Total Critical Care Time: 35 Attestation: I have personally provided critical care time exclusive of time spent on sepa rately billable procedures. Time includes review of lab data, radiology results, discussion with consultants, and monitoring for potential decompensation. Intervention performed as documented. Discharge Plan Discharge Clinical Impression: Asthma with exacerbation Patient Disposition: Home, Self-Care Instructions: Asthma (DC) Additional Instructions: Your blood work and chest x-ray were reassuring. She tested negative for COVID and the flu Your treated with multiple nebulized treatments and steroids Continue to use inhalers and prednisone at home as prescribed Follow-up with your doctor If symptoms persist or worsen return to the emergency department Prescriptions: New prednisone 20 mg tablet 40 mg PO DAILY 5 Days Qty: 10 0RF albuterol sulfate 90 mcg/actuation HFA aerosol inhaler 2 puff inhalation Q4-6H PRN (Reason: shortness of breath or wheezing) Qty: 6.7 0RF albuterol sulfate 2.5 mg/0.5 mL solution for nebulization 5 mg inhalation Q4H PRN (Reason: shortness of breath or wheezing) Qty: 30 0RF No Action oxybutynin chloride 15 mg tablet extended release 24hr 15 mg PO DAILY Qty: 30 6RF tamsulosin 0.4 mg capsule 0.4 mg PO DAILY 90 Days Qty: 90 2RF albuterol sulfate [Ventolin HFA] 90 mcg/actuation Hfa Aerosol Inhaler 2 puff INHALATION 6XD PRN (Reason: Wheezing) clonazepam 0.5 mg tablet 0.5 mg PO BID Rx Instructions: administer 30 minutes before bedtime duloxetine [Cymbalta] 30 mg capsule,delayed release(DR/EC) 30 mg PO DAILY loratadine [Claritin] 10 mg tablet 10 mg PO DAILY ibuprofen 800 mg tablet 800 mg PO Q8H amitriptyline 75 mg tablet 75 mg PO BEDTIME gabapentin 800 mg tablet 800 mg PO DAILY montelukast [Singulair] 10 mg tablet 10 mg PO BEDTIME clotrimazole 1 % cream topical trazodone 50 mg tablet 50 mg PO BEDTIME PRN cetirizine 10 mg tablet 10 mg PO DAILY PRN fluticasone propionate [Flovent HFA] 110 mcg/actuation HFA aerosol inhaler 1 puff inhalation BID sennosides [senna] 8.6 mg tablet 17.2 mg PO DAILY 60 Days Qty: 120 3RF polyethylene glycol 3350 [Miralax] 17 gram/dose powder 17 g PO DAILY 60 Days Qty: 1020 3RF Referrals: [facility] [Primary Care Provider] - 3 days
[2022-12-10 17:14] LABS: MANUAL DIFF FLAG NO
[2022-12-10 17:27] LABS: Basophils Absolute Auto 0.1 X10*3/uL (0.0-0.2); Basophils Percent Auto 0.8 % (0-2); Eosinophils Absolute Auto 0.3 X10*3/uL (0.0-0.4); Eosinophils Percent Auto 4.3 % (0-4); Hematocrit 43.6 % (42.0-52.0); Imm Gran Abs Auto 0.03 X10*3/uL (0.00-0.03); Imm Gran Pct Auto 0.5 % (0.0-0.4); Lymphocytes Absolute Auto 1.3 X10*3/uL (1.2-4.9); Lymphocytes Percent Auto 19.8 % (20-40); Mean Corpuscular HGB Conc 34.4 g/dl (31.0-36.0); Mean Corpuscular Volume 84.2 fL (80.0-98.0); Monocytes Absolute Auto 0.5 X10*3/uL (0.1-1.2); Monocytes Percent Auto 7.9 % (2-11); Neutrophils Absolute Auto 4.4 x10*3/uL (2.0-8.3); Neutrophils Percent Auto 66.7 % (45-73); Platelet Count 288 X10*3/uL (160-400); Red Blood Count 5.18 X10*6/uL (4.60-5.80); Red Cell Distribution Width 12.5 % (11.0-16.0); White Blood Count 6.6 X10*3/uL (4.8-10.8)
[2022-12-10 17:32] LABS: Anion Gap 16 (12-20); Blood Urea Nitrogen 9 mg/dL (9-16); Calcium 9.8 mg/dL (8.4-10.2); Carbon Dioxide 22 mmol/L (22-29); Chloride 107 mmol/L (96-108); Creatinine Clr Calc Pharmacy 145.1; Estimated Glomerular Filt Rate > 60; Glucose Random 71 mg/dL (60-115); Potassium 4.1 mmol/L (3.3-5.1); Sodium 141 mmol/L (135-145)
[2022-12-10 17:48] LABS: Troponin-I High Sensitivity < 2.7 ng/L (<3.5-35.0)
[2022-12-10] MEDS: Albuterol Sulfate (0.083%) 2.5 MG/3 ML VIAL.NEB 10 MG INHALE (20:05)
[2022-12-10 20:06] VITALS: PULSE 75; RESP 16; O2SAT 98
[2022-12-10 20:23] VITALS: BP 150/87; PULSE 106; RESP 20; O2SAT 96
[2022-12-10 20:45] LABS: COVID-19 Test Negative (Negative); IDNOW Serial# BCCEAD1C
[2022-12-10 20:46] LABS: IDNOW Serial# 08D9AD1C; Influenza A Negative (Negative); Influenza B2 Negative (Negative)
--- NOTE | 2022-12-10 20:59 | PC.NURSE ---
Pt A&Ox4, Pt reports productive cough, and congestion and SOB x 2 days, worsening today. Lung sounds wheezing, speaking in full sentences, Spo2 96%, receiving breathing treatment.
[2022-12-10 22:27] VITALS: PULSE 106; RESP 20; O2SAT 98
[2022-12-10] MEDS: Albuterol Sulfate 7.5 MG, Albuterol/Iprat 2.5/0.5MG 3 ML 3 ML INHALE (22:31)
[2022-12-10] MEDS: methylPREDNISolone Sod Succ 125 MG/2 ML VIAL IVPUSH (22:37)
[2022-12-11 00:26] VITALS: BP 109/71; PULSE 99; RESP 20; TEMP 37.1; O2SAT 96
== END 2022-12-11 00:33 | disposition home or self-care (01) ==
PROVIDERS: Physician Assistant; Emergency Provider Student in an Organized Health Care Education/Training Program
DX: J45.901 Unspecified asthma with (acute) exacerbation (principal); R06.02 Shortness of breath; Z20.822 Contact with and (suspected) exposure to COVID-19
CPT/HCPCS: 36415; 71046; 80048; 84484; 85025; 87502; 87635; 93005; 94640; 96374; 99284; 99285; J2930

== ENCOUNTER → 2022-12-10 16:45 | Outpatient (BNV) | payer MEDICAID, SELFPAY | PROVIDERS: Emergency Provider Student in an Organized Health Care Education/Training Program; Visit Provider Internal Medicine Cardiovascular Disease | DX: R07.9 Chest pain, unspecified (principal) | CPT/HCPCS: 93010 ==

== ENCOUNTER 2022-12-16 13:27 | Outpatient (AMB) | payer MEDICAID, SELFPAY ==
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
[2022-12-16 13:38] VITALS: BP 159/83; PULSE 86; O2SAT 97; BMI 28.3
== END 2022-12-16 14:01 | disposition home or self-care (01) ==
PROVIDERS: PCP Internal Medicine; Visit Provider Nurse Practitioner Family
DX: G89.4 Chronic pain syndrome (principal); M46.1 Sacroiliitis, not elsewhere classified; M54.16 Radiculopathy, lumbar region; M51.36 Other intervertebral disc degeneration, lumbar region; M47.817 Spondylosis without myelopathy or radiculopathy, lumbosacral region; Z18.10 Retained metal fragments, unspecified
CPT/HCPCS: 99214

== ENCOUNTER → 2022-12-16 13:27 | Outpatient (BNVA) | payer MEDICAID, SELFPAY | PROVIDERS: PCP Internal Medicine; Visit Provider Nurse Practitioner Family | DX: M46.1 Sacroiliitis, not elsewhere classified (principal); M51.36 Other intervertebral disc degeneration, lumbar region; M54.16 Radiculopathy, lumbar region; M47.817 Spondylosis without myelopathy or radiculopathy, lumbosacral region; G89.4 Chronic pain syndrome; Z18.10 Retained metal fragments, unspecified | CPT/HCPCS: 99214 ==

== ENCOUNTER 2023-01-15 09:58 | Outpatient (AMB) | payer MEDICAID, SELFPAY ==
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
[2023-01-15 10:11] VITALS: BP 115/64; PULSE 80; BMI 28.3
== END 2023-01-15 10:42 | disposition home or self-care (01) ==
PROVIDERS: PCP Internal Medicine; Visit Provider Internal Medicine Gastroenterology
DX: K59.09 Other constipation (principal); R14.0 Abdominal distension (gaseous); Z86.010 Personal history of colon polyps
CPT/HCPCS: 99499

== ENCOUNTER → 2023-01-15 09:58 | Outpatient (BNVA) | payer MEDICAID, SELFPAY | PROVIDERS: PCP Internal Medicine; Visit Provider Internal Medicine Gastroenterology ==

== ENCOUNTER 2023-01-20 06:03 | Outpatient (REF) | payer MEDICAID, SELFPAY ==
--- NOTE | ~2023-01-20 | FL_ITS ---
EXAMINATION: XR FLUOROSCOPY WITH IMAGES CLINICAL INFORMATION: Sacroiliitis COMPARISON: None available. TECHNIQUE: Fluoroscopy Supervised By: Dr. Colten Baker. Fluoroscopy Time: 0.3 minutes. Cumulative Dose: 10 mGy. DAP: 0.173 Gycm2. Images: 2. FINDINGS: Mchenry project over both sacroiliac joints with contrast injected. FL/FL guidance in treatment room IMPRESSION: Bilateral sacroiliac joint injection.
== END 2023-01-20 06:04 | disposition home or self-care (01) ==
LOC: CF 06:03
PROVIDERS: Visit Provider Anesthesiology
DX: M46.1 Sacroiliitis, not elsewhere classified (principal); M54.16 Radiculopathy, lumbar region; M51.36 Other intervertebral disc degeneration, lumbar region; M47.817 Spondylosis without myelopathy or radiculopathy, lumbosacral region; Z18.10 Retained metal fragments, unspecified
CPT/HCPCS: 27096; J3301

== ENCOUNTER 2023-01-20 10:00 | Outpatient (AMB) | payer MEDICAID, SELFPAY ==
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
[2023-01-20 10:13] VITALS: BP 118/64; PULSE 73; RESP 18; O2SAT 96; BMI 28.3
[2023-01-20 11:11] VITALS: BP 128/88; PULSE 80; RESP 18; O2SAT 97
== END 2023-01-20 11:04 | disposition home or self-care (01) ==
LOC: HO.PMCPRC 10:00
PROVIDERS: PCP Internal Medicine; Visit Provider Anesthesiology
DX: G89.4 Chronic pain syndrome (principal); M46.1 Sacroiliitis, not elsewhere classified; M47.26 Other spondylosis with radiculopathy, lumbar region; M51.36 Other intervertebral disc degeneration, lumbar region; Z18.10 Retained metal fragments, unspecified
CPT/HCPCS: 27096

== ENCOUNTER 2023-02-02 07:51 | Outpatient (REF) | payer MEDICAID, SELFPAY ==
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
== END 2023-02-02 07:52 | disposition home or self-care (01) ==
LOC: HO.CT 07:51
PROVIDERS: PCP Internal Medicine; Visit Provider Nurse Practitioner Family
DX: M46.1 Sacroiliitis, not elsewhere classified (principal); M54.16 Radiculopathy, lumbar region; G89.4 Chronic pain syndrome
CPT/HCPCS: 72131

== ENCOUNTER 2023-02-17 09:56 | Outpatient (AMB) | payer MEDICAID, SELFPAY ==
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
[2023-02-17 10:03] VITALS: BP 135/89; PULSE 67; O2SAT 96; BMI 28.3
== END 2023-02-17 10:19 | disposition home or self-care (01) ==
PROVIDERS: PCP Internal Medicine; Visit Provider Nurse Practitioner Family
DX: Z18.10 Retained metal fragments, unspecified (principal); M51.36 Other intervertebral disc degeneration, lumbar region; M54.16 Radiculopathy, lumbar region
CPT/HCPCS: 99214

== ENCOUNTER → 2023-02-17 09:56 | Outpatient (BNVA) | payer MEDICAID, SELFPAY | PROVIDERS: PCP Internal Medicine; Visit Provider Nurse Practitioner Family | DX: M51.36 Other intervertebral disc degeneration, lumbar region (principal); M54.16 Radiculopathy, lumbar region; Z18.10 Retained metal fragments, unspecified; Z98.890 Other specified postprocedural states | CPT/HCPCS: 99212 ==

== ENCOUNTER 2023-03-31 12:57 | Outpatient (AMB) | payer MEDICAID, SELFPAY ==
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
== END 2023-03-31 13:44 | disposition home or self-care (01) ==
PROVIDERS: PCP Internal Medicine; Referring Provider Nurse Practitioner Family; Visit Provider Physician Assistant
DX: Z18.10 Retained metal fragments, unspecified (principal); M47.817 Spondylosis without myelopathy or radiculopathy, lumbosacral region
CPT/HCPCS: 99204

== ENCOUNTER → 2023-03-31 12:57 | Outpatient (BNVA) | payer MEDICAID, SELFPAY | PROVIDERS: PCP Internal Medicine; Referring Provider Nurse Practitioner Family; Visit Provider Physician Assistant | DX: Z18.10 Retained metal fragments, unspecified (principal); M47.817 Spondylosis without myelopathy or radiculopathy, lumbosacral region | CPT/HCPCS: 99212 ==

== ENCOUNTER 2023-06-19 14:53 | Outpatient (AMB) | payer MEDICAID, SELFPAY ==
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
[2023-06-19 15:03] VITALS: BP 137/90; PULSE 74; O2SAT 98; BMI 28.5
== END 2023-06-19 15:29 | disposition home or self-care (01) ==
PROVIDERS: PCP Internal Medicine; Visit Provider Nurse Practitioner Family
DX: M47.817 Spondylosis without myelopathy or radiculopathy, lumbosacral region (principal); Z18.10 Retained metal fragments, unspecified; M51.36 Other intervertebral disc degeneration, lumbar region; M54.16 Radiculopathy, lumbar region; G90.511 Complex regional pain syndrome I of right upper limb
CPT/HCPCS: 99214

== ENCOUNTER → 2023-06-19 14:53 | Outpatient (BNVA) | payer MEDICAID, SELFPAY | PROVIDERS: PCP Internal Medicine; Visit Provider Nurse Practitioner Family | DX: M47.817 Spondylosis without myelopathy or radiculopathy, lumbosacral region (principal); M51.36 Other intervertebral disc degeneration, lumbar region; M54.16 Radiculopathy, lumbar region; G90.511 Complex regional pain syndrome I of right upper limb; Z18.10 Retained metal fragments, unspecified | CPT/HCPCS: 99212 ==

== ENCOUNTER 2023-07-17 09:20 | Day surgery (SDC) | payer MEDICAID, SELFPAY ==
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
[2023-07-17 10:02] VITALS: BMI 27.9
[2023-07-17 10:12] LABS: MANUAL DIFF FLAG NO
[2023-07-17 10:15] LABS: Basophils Absolute Auto 0.1 X10*3/uL (0.0-0.2); Basophils Percent Auto 1.2 % (0-2); Eosinophils Absolute Auto 0.3 X10*3/uL (0.0-0.4); Eosinophils Percent Auto 4.2 % (0-4); Hematocrit 41.4 % (42.0-52.0); Imm Gran Abs Auto 0.01 X10*3/uL (0.00-0.03); Imm Gran Pct Auto 0.2 % (0.0-0.4); Lymphocytes Percent Auto 33.8 % (20-40); Mean Corpuscular HGB Conc 33.8 g/dl (31.0-36.0); Mean Corpuscular Hemoglobin 28.5 pg (27.0-33.0); Mean Corpuscular Volume 84.1 fL (80.0-98.0); Mean Platelet Volume 9.9 fL (9.4-12.4); Monocytes Absolute Auto 0.4 X10*3/uL (0.1-1.2); Monocytes Percent Auto 6.5 % (2-11); Neutrophils Absolute Auto 3.2 x10*3/uL (2.0-8.3); Neutrophils Percent Auto 54.1 % (45-73); Platelet Count 230 X10*3/uL (160-400); Red Blood Count 4.92 X10*6/uL (4.60-5.80); Red Cell Distribution Width 12.7 % (11.0-16.0)
[2023-07-17 10:22] LABS: INTERNATIONAL NORM RATIO 0.9 (0.9-1.1); Prothrombin Time 11.4 SEC (11.1-13.3)
[2023-07-17 10:24] LABS: Partial Thromboplastin Time 36.4 SEC (26.0-36.8)
[2023-07-17 12:22] VITALS: BP 112/72; PULSE 50; RESP 14; TEMP 36.6; O2SAT 99
[2023-07-17] MEDS: Acetaminophen 325 MG TABLET 650 MG PO (12:45)
[2023-07-17 12:52] VITALS: BP 122/72; PULSE 55; RESP 14; O2SAT 99
[2023-07-17 13:22] VITALS: BP 117/74; PULSE 58; RESP 16; O2SAT 99
== END 2023-07-17 13:35 | disposition home or self-care (01) ==
LOC: HO.SSS 09:21
PROVIDERS: Physician Assistant Surgical; Radiology Vascular & Interventional Radiology; PCP Internal Medicine; Visit Provider Physician Assistant
DX: M47.817 Spondylosis without myelopathy or radiculopathy, lumbosacral region (principal); Z18.10 Retained metal fragments, unspecified; G89.4 Chronic pain syndrome; M54.50 Low back pain, unspecified; J45.909 Unspecified asthma, uncomplicated; Z79.899 Other long term (current) drug therapy; Z79.1 Long term (current) use of non-steroidal anti-inflammatories (NSAID)
CPT/HCPCS: 36415; 62304; 85025; 85610; 85730; Q9967

== ENCOUNTER → 2023-07-17 11:00 | Outpatient (BNV) | payer MEDICAID, SELFPAY | PROVIDERS: PCP Internal Medicine; Visit Provider Physician Assistant Surgical | DX: M54.16 Radiculopathy, lumbar region (principal); Z18.10 Retained metal fragments, unspecified | CPT/HCPCS: 62304 ==

== ENCOUNTER 2023-08-13 09:39 | Outpatient (AMB) | payer MEDICAID, SELFPAY ==
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
[2023-08-13 09:46] VITALS: BP 122/69; PULSE 64; BMI 27.7
== END 2023-08-13 10:57 | disposition home or self-care (01) ==
PROVIDERS: PCP Internal Medicine; Supervising Provider Internal Medicine; Visit Provider Internal Medicine Gastroenterology
DX: K59.09 Other constipation (principal); R14.0 Abdominal distension (gaseous); Z86.010 Personal history of colon polyps
CPT/HCPCS: 99214

== ENCOUNTER → 2023-08-13 09:39 | Outpatient (BNVA) | payer MEDICAID, SELFPAY | PROVIDERS: PCP Internal Medicine; Visit Provider Internal Medicine Gastroenterology | DX: K59.09 Other constipation (principal); R14.0 Abdominal distension (gaseous); Z86.010 Personal history of colon polyps | CPT/HCPCS: 99212 ==

== ENCOUNTER 2024-01-04 10:15 | Day surgery (SDC) | payer MEDICAID, SELFPAY ==
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
[2024-01-04 10:30] VITALS: BMI 28.1
[2024-01-04 10:44] VITALS: BP 132/103; PULSE 72; RESP 16; TEMP 36.1; O2SAT 97
[2024-01-04] MEDS: Lactated Ringers 1,000 ML 100 ML IVCONT (10:46)
--- NOTE | 2024-01-04 11:21 | MHC.SHP ---
Pre-Procedural Eval Section A - 24 Hr Update-Section A only Date of Service: 01/04/24 The patient is an INPATIENT: No The patient has been examined within 24 hours of the surgical procedure. The History & Physical has been completed within 30 days and I have reviewed it.: No Section B - Complete if H&P > 30 days Chief Complaint: Surveillance for colon polyps Relevant Family History (Specify if Yes): Yes Relevant Social History: None Present Medications: see Short Stay Collaborative assessment Medical History: Significant History (Chronic pain syndrome Complex regional pain syndrome i of right upper limb Sacroiliitis Urinary retention Chronic back pain Right hemiparesis Mood disorder Depression Asthma) History of Previous Operations: Relevant previous surgery/procedure and date(s) (Hx of colonoscopy History of surgery Hx of colonoscopy Hx of exploratory laparotomy History of ankle surgery History of prostate surgery H/O toe surgery) Allergies: Allergies Allergy/AdvReac Type Severity Reaction Status Date / Time ENVIROMENTAL Allergy Intermediate SNEEZING, Uncoded 12/10/22 17:14 COUGH, SOB Review of Systems Sugical H&P ROS: Negative: Constitution, Cardiovascular, Respiratory and Gastrointestinal Exam Surgical H&P Exam: Normal: Heart, Normal: Lungs, Normal: Extremities and Normal: Abdomen Plan Diagnosis/Plan: Unchanged I have reviewed the history and physical and performed a pertinent physical examination on my patient. No changes have occurred unless specified. Time Spent With Patient Time: Total time managing care of this patient today ____ minutes.
--- NOTE | 2024-01-04 13:22 | HO.OPN-COLON ---
Colonoscopy Operative Note Operative Note Date of Service: 01/04/24 Narrative: COLONOSCOPY TILL CECUM WITH SNARE POLYPECTOMY Pre-op diagnosis: Surveillance for colon polyps. Post-op diagnosis:? Colon polyp, Diverticulosis, hemorrhoids Endoscopist:? Natalie Ross MD Anesthesia:?MAC Consent: Indications for the procedure and potential complications of bleeding, perforation, reaction to medications and missed diagnosis were discussed with the patient and informed consent was obtained. Instrument: Olympus CF H 190 L variable stiffness adult colonoscope Monitoring: Vital signs and clinical assessment, intermittent blood pressure monitoring, continuous EKG monitoring, Pulse oximetry and Carbon Dioxide monitoring were done throughout the procedure. Please see anesthesia flowsheet. Colon withdrawl time was 21 minutes. Procedure: The patient was placed in the left lateral decubitis position and pre-procedure medications were administered. After a digital rectal examination of the ano-rectum, the video colonoscope was inserted into the rectum and advanced through the colon to the cecum. The colonoscope was slowly withdrawn in a retrograde panoramic fashion and the colon mucosa was carefully examined including a retroflexed view of the rectum. Findings and interventions are described below. Procedure Difficulty: without difficulty Findings: Terminal Ileum: Not evaluated Cecum: Normal Ascending Colon: Normal Transverse Colon: Normal Descending Colon: Normal Sigmoid Colon: A 7-8 mm sessile polyp - removed with a cold snare. Moderate diverticulosis Rectum: Normal Ano-rectum: Moderate internal hemorrhoids Colon preparation: Good after copious irrigation. [place] Bowel Preparation Scale Right colon; 2 Transverse colon: 2 Left colon; 2 (0 = Unprepared colon segment with mucosa not seen due to solid stool that cannot be cleared. 1 = Portion of mucosa of the colon segment seen, but other areas of the colon segment not well seen due to staining, residual stool and/or opaque liquid. 2 = Minor amount of residual staining, small fragments of stool and/or opaque liquid, but mucosa of colon segment seen well. 3 = Entire mucosa of colon segment seen well with no residual staining, small fragments of stool or opaque liquid) Impression and Post Procedure Diagnosis: Colonoscopy Findings: One small polyp was removed Moderate diverticulosis seen in the sigmoid colon Moderate hemorrhoids on retroflexed exam. Plan: Pt has a FU appointment on 01/21/[address] Ross Repeat Colonoscopy in 5 years if polyps are adenomatous and 10 year if polyps are hyperplastic. Above findings were reviewed with the patient and relevant handouts were given and the discharge area. BIOPSIES SHOWED: Colon, sigmoid, polyp: Tubular adenoma; negative for high-grade dysplasia and carcinoma.
[2024-01-04 13:23] VITALS: BP 104/63; PULSE 47; RESP 16; TEMP 36.6; O2SAT 97
[2024-01-04 13:38] VITALS: BP 119/65; PULSE 48; RESP 48; TEMP 36.6; O2SAT 98
== END 2024-01-04 14:08 | disposition home or self-care (01) ==
PROVIDERS: PCP Internal Medicine; Visit Provider Internal Medicine Gastroenterology
PROC: 0DJD8ZZ Inspection of Lower Intestinal Tract, Via Natural or Artificial Opening Endoscopic (ICD-10-PCS; CPT 45378; principal; 2024-01-04 13:00)
DX: Z12.11 Encounter for screening for malignant neoplasm of colon (principal); D12.5 Benign neoplasm of sigmoid colon; K57.30 Diverticulosis of large intestine without perforation or abscess without bleeding; K64.8 Other hemorrhoids; Z86.010 Personal history of colon polyps; J45.909 Unspecified asthma, uncomplicated; Z79.899 Other long term (current) drug therapy
CPT/HCPCS: 45385; 88305; J2704

== ENCOUNTER → 2024-01-04 10:15 | Outpatient (BNV) | payer MEDICAID, SELFPAY | PROVIDERS: PCP Internal Medicine; Visit Provider Internal Medicine Gastroenterology | DX: Z12.11 Encounter for screening for malignant neoplasm of colon (principal); K57.30 Diverticulosis of large intestine without perforation or abscess without bleeding; D12.5 Benign neoplasm of sigmoid colon; K64.8 Other hemorrhoids | CPT/HCPCS: 45385 ==

== ENCOUNTER 2024-02-02 09:25 | Outpatient (AMB) | payer MEDICAID, SELFPAY ==
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
[2024-02-02 09:32] VITALS: BP 113/68; PULSE 61; BMI 27.8
== END 2024-02-02 10:08 | disposition home or self-care (01) ==
PROVIDERS: PCP Internal Medicine; Visit Provider Internal Medicine Gastroenterology
DX: K59.09 Other constipation (principal); R14.0 Abdominal distension (gaseous); Z86.010 Personal history of colon polyps
CPT/HCPCS: 99213

== ENCOUNTER → 2024-02-02 09:25 | Outpatient (BNVA) | payer MEDICAID, SELFPAY | PROVIDERS: PCP Internal Medicine; Visit Provider Internal Medicine Gastroenterology | DX: K59.09 Other constipation (principal); R14.0 Abdominal distension (gaseous); Z86.010 Personal history of colon polyps; Z71.2 Person consulting for explanation of examination or test findings | CPT/HCPCS: 99212 ==

== ENCOUNTER 2024-10-06 09:54 | Outpatient (AMB) | payer MEDICAID, SELFPAY ==
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
[2024-10-06 09:58] VITALS: BP 103/69; PULSE 69; O2SAT 96; BMI 27.7
--- OUTSIDE RECORDS SUMMARY | 2024-10-06 10:16 | XMS_ITS | Encounter Summary ---
Author Organization [employer] Address [address] [place] [address] [address] [place] [address] Care Team Providers Care Marketing Services Rep Name Role Phone Jesus Cote MD Primary Care Prov ider Encounter Details Date Type Department Care Team (Latest Contact Info) Description 01/08/2022 Abstract [facility] Dental, Provider, DDS Social History Tobacco Use Types Packs/Day Years Used Date Smoking Tobacco: Never Assessed Sex and Gender Information Value Date Recorded Sex Assigned at Male 03/17/2022 10:16 AM EDT Legal Sex Male 10:16 AM EDT Gender Identity Male 03/17/2022 10:16 AM EDT Sexual Orientation Straight 03/17/2022 10 :16 AM EDT documented as of this encounter Plan of Treatment Not on file documented as of this encounter Visit Diagnoses Not on filedocumented in this encounter Care Teams Marketing Services Rep Relationship Specialty Start Date End Date Jesus Cote MD [address] [place] [address] PCP - General Internal Medicine 10/16/19 documented as of this encounter
--- OUTSIDE RECORDS SUMMARY | 2024-10-06 10:16 | XMS_ITS | Encounter Summary ---
Author Organization [employer] Address [address] [facility] [address] [place] [address] Care Team Providers Care Deputy Administrator Name Role Phone Jesus Cote MD Primary Care Prov ider Reason for Visit * Reason Comments Med Refill Encounter Details Date Type Department Care Team ([facility] st Contact Info) Description 10/23/2023 Refill [facility] [address] [place], [place] [phone] Wendy Mendosa MD [address] [place] [address] Migraine without aura and without status migrainosus, not intractable Social History Tobacco Use Types Packs/Day Years Used Date Smoking Tobacco: Never Smokeless Tobacco: Never Depression Answer Date Recorded Patient Health Questionnaire-9 Score 10 07/27/2023 Patient Health Questionnaire-9 Score 10 07/27/2023 Last PHQ-9: Questionnaire Data Not on file 0 07/27/2023 Depression Answer Date Recorded Patient Health Questionnaire-2 Score 2 07/27/2023 Sex and Gender Information Value Date Recorded Sex Assigned at Male 03/17/2022 10:16 AM EDT Legal Sex Male 10:16 AM EDT Gender Identity Male 03/17/2022 10:16 AM EDT Sexual Orientation Straight 03/17/2022 10 :16 AM EDT documented as of this encounter Plan of Treatment Not on file documented as of this encounter Visit Diagnoses Diagnosis Migraine without aura and without status migrainosus, not intractable documented in this encounter Additional Health Concerns Assessment Noted Time PHQ-9 Depression Total Score: 024 1:16 PM EDT documented as of this encounter Care Teams Deputy Administrator Relationship Specialty Start Date End Date Jesus Cote MD [address] [place] [id number] PCP - General Internal Medicine 10/16/19 documented as of this encounter
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
--- OUTSIDE RECORDS SUMMARY | 2024-10-06 10:16 | XMS_ITS | Encounter Summary ---
Author Organization [employer] Address [address] [facility] 7 [place] [address] Care Team Providers Care Salesforce Administrator Name Role Phone Jesus Cote MD Primary Care Prov ider Reason for Visit * Reason Onset Date Comments Referral 11/25/2023 Encounter Details Date Type Department Care Team ([facility] st Contact Info) Description 11/25/2023 Telephone [facility] MED & PEDS [address] [place], [place] [phone] Jesus Cote MD [address] [place] [address] Referral Social History Tobacco Use Types Packs/Day Years [...] AM EDT documented as of this encounter Miscellaneous Notes * Telephone Encounter - Daniela Osman - 11/25/2023 11:23 AM EDT Tc from pt requesting status on a referral he requested on last visit for an sample finisher. Please callpt to clarify. documented in this encounter Plan of Treatment Not on file documented as of this encounter Visit Diagnoses Diagnosis Pain in other joint documented in this encounter Additional Health Concerns Assessment Noted Time PHQ-9 Depression Total Score: 10 024 1:16 PM EDT documented as of this encounter Care Teams Salesforce Administrator Relationship Specialty Start Date End Date Jesus Cote MD [address] [place] [id number] PCP - General Internal Medicine 10/16/19 documented as of this encounter
--- OUTSIDE RECORDS SUMMARY | 2024-10-06 10:16 | XMS_ITS | Encounter Summary ---
Author Organization [employer] Address 75 [facility] 7 [place] [address] Care Team Providers Care Transfer Coordinator Name Role Phone Jesus Cote MD Primary Care Prov ider Reason for Visit * Reason Comments Med Change Request Encounter Details Date Type Department Care Team ([facility] st Contact Info) Description 08/27/2023 Refill [facility] MED & PEDS [address] [place], [place] [phone] Jesus Cote MD [address] [place] [address] Mild persistent asthma without complication Social History Tobacco Use Types Packs/Day Years [...] as of this encounter Visit Diagnoses Diagnosis Mild persistent asthma without complication documented in this encounter Additional Health Concerns Assessment Noted Time PHQ-9 Depression Total Score: 10 024 1:16 PM EDT documented as of this encounter Care Teams Transfer Coordinator Relationship Specialty Start Date End Date Jesus Cote MD [address] [place] [id number] PCP - General Internal Medicine 10/16/19 documented as of this encounter
--- OUTSIDE RECORDS SUMMARY | 2024-10-06 10:16 | XMS_ITS | Encounter Summary ---
Author Organization [employer] Address [address] [facility] 7t [place] [address] Care Team Providers Care Bead Preparer Name Role Phone Jesus Cote MD Primary Care Prov ider Encounter Details Date Type Department Care Team (Late st Contact Info) Description 05/12/2023 Abstract [facility] ADULT D[facility] [address] [place] [address] Placido Hendricks DDS [address] [place] [address] Social History Tobacco Use Types Packs/Day Years Used Date Smoking Tobacco: Never Smokeless Tobacco: Never Sex and Gender Information Value Date Recorded Sex Assigned at Male 03/17/2022 10:16 AM EDT Legal Sex Male 10:16 AM EDT Gender Identity Male 03/17/2022 10:16 AM EDT Sexual Orientation Straight 03/17/2022 10 :16 AM EDT documented as of this encounter Plan of Treatment Not on file documented as of this encounter Visit Diagnoses Not on filedocumented in this encounter Care Teams Bead Preparer Relationship Specialty Start Date End Date Jesus Cote MD [address] [place] [address] PCP - General Internal Medicine 10/16/19 documented as of this encounter
--- OUTSIDE RECORDS SUMMARY | 2024-10-06 10:16 | XMS_ITS | Encounter Summary ---
Author Organization [employer] Address 75 [facility] 7t [place] [address] Care Team Providers Care Billet Worker Name Role Phone Jesus Cote MD Primary Care Prov ider Reason for Visit * Reason Onset Date Comments Referral 2022 Encounter Details Date Type Department Care Team ([facility] Contact Info) Description 2022 Telephone [facility] CHC MED & PEDS [address] [place], [place] [phone] Jesus Cote MD [address] [place] [address] Referral Social History Tobacco Use Types Packs/Day Years Used Date Smoking Tobacco: Never Smokeless Tobacco: Never Sex and Gender Information Value Date Recorded Sex Assigned at Male 03/17/2022 10:16 AM EDT Legal Sex Male 10:16 AM EDT Gender Identity Male 03/17/2022 10:16 AM EDT Sexual Orientation Straight 03/17/2022 10 :16 AM EDT COVID-19 Exposure Response Date Recorded In the last 10 days, have yo u been in contact with someone who was confirmed or suspected to have Coronavirus/COVID-19? No / Unsure 11/04/2022 1:29 PM EDT documented as of this encounter Miscellaneous Notes * Telephone Encounter - Magda Devi - 2022 3:00 PM EDT Referral faxed to [facility] pain management. Office will contact patient with appointment. Letter mailed to pt with information. * Telephone Encounter - Tara Perez - 2022 1:06 PM EDT Tc from pt requesting status on referral made on 11/14/2022. Please contact pt at [phone] Armenian Speaker documented in this encounter Plan of Treatment Not on file documented as of this encounter Visit Diagnoses Not on filedocumented in this encounter Care Teams Billet Worker Relationship Specialty Start Date End Date MichaelJesus Marcum MD [address] [place] [id number] PCP - General Internal Medicine 10/16/19 documented as of this encounter
--- OUTSIDE RECORDS SUMMARY | 2024-10-06 10:16 | XMS_ITS | Encounter Summary ---
Author Organization [employer] Address [address] [place] [address] 7t [place] [address] Care Team Providers Care Patient Support Associate Name Role Phone Jesus Cote MD Primary Care Prov ider Encounter Details Date Type Department Care Team (Latest Contact Info) Description 02/08/2020 Abstract [facility] CONVERSIONS Dental, Provider, DDS Social History Tobacco [...] on filedocumented in this encounter Care Teams Patient Support Associate Relationship Specialty Start Date End Date Jesus Cote MD [address] [place] [address] PCP - General Internal Medicine 10/16/19 documented as of this encounter
--- OUTSIDE RECORDS SUMMARY | 2024-10-06 10:16 | XMS_ITS | Encounter Summary ---
Author Organization [employer] Address 75 [facility] 7 [place] [address] Care Team Providers Care Tailer Out Name Role Phone Jesus Cote MD Primary Care Prov ider Reason for Visit * Reason Onset Date Comments Med Refill 11/25/2023 Encounter Details Date Type Department Care Team ([facility] st Contact Info) Description 11/25/2023 Telephone [facility] CH[facility] MED & PEDS [address] [place], [place] [phone] Jessu Cote MD [address] [place] [address] Med Refill Social History Tobacco Use Types Packs/Day Years [...] Telephone Encounter - Daniela Osman - 11/25/2023 11:21 AM EDT TC from pt requesting medication refill. Medications needing refill : ibuprofen 800 MG tablet To be sent to: [facility]/pharmacy #[id number] - [place] - [address] [facility] documented in this encounter Plan of Treatment Not on file documented as of this encounter Visit Diagnoses Not on filedocumented in this encounter Additional Health Concerns Assessment Noted Time PHQ-9 Depression Total Score: 10 024 1:16 PM EDT documented as of this encounter Care Teams Tailer Out Relationship Specialty Start Date End Date Jesus Cote MD [address] [place] [id number] PCP - General Internal Medicine 10/16/19 documented as of this encounter
--- OUTSIDE RECORDS SUMMARY | 2024-10-06 10:16 | XMS_ITS | Encounter Summary ---
Author Organization [employer] Address [address] [place] [address] [address]t [place] [address] Care Team Providers Care Director River Restoration Name Role Phone Jesus Cote MD Primary Care Prov ider Encounter Details Date Type Department Care Team (Latest Contact Info) Description 01/28/2019 Abstract [facility] CONVERSIONS Dental, Provider, DDS Social History Tobacco [...] on filedocumented in this encounter Care Teams Director River Restoration Relationship Specialty Start Date End Date Jesus Cote MD [address] [place] [address] PCP - General Internal Medicine 10/16/19 documented as of this encounter
--- OUTSIDE RECORDS SUMMARY | 2024-10-06 10:16 | XMS_ITS | Encounter Summary ---
Author Organization [employer] Address 75 [facility] 7t [place] [address] Care Team Providers Care Motorcycle Repair Shop Supervisor Name Role Phone Jesus Cote MD Primary Care Prov ider Encounter Details Date Type Department Care Team (Late st Contact Info) Description 05/27/2023 Abstract [facility] ADULT DENTAL [address] [place] [address] Arina Hilaria [address] [place] [address] Social History Tobacco Use Types Packs/Day Years [...] on filedocumented in this encounter Care Teams Motorcycle Repair Shop Supervisor Relationship Specialty Start Date End Date Jesus Cote MD [address] [place] [address] PCP - General Internal Medicine 10/16/19 documented as of this encounter
== END 2024-10-06 10:49 | disposition home or self-care (01) ==
LOC: HO.HGI 09:55
PROVIDERS: PCP Internal Medicine; Visit Provider Internal Medicine Gastroenterology
DX: K59.09 Other constipation (principal); R14.0 Abdominal distension (gaseous); Z86.0100 Personal history of colon polyps, unspecified
CPT/HCPCS: 99213

== ENCOUNTER → 2024-10-06 09:54 | Outpatient (BNVA) | payer MEDICAID, SELFPAY | PROVIDERS: PCP Internal Medicine; Visit Provider Internal Medicine Gastroenterology | DX: R14.0 Abdominal distension (gaseous) (principal); K59.09 Other constipation; Z86.0100 Personal history of colon polyps, unspecified | CPT/HCPCS: 99212 ==

== ENCOUNTER 2024-10-14 08:30 | Outpatient (REF) | payer MEDICAID, SELFPAY ==
--- OUTSIDE RECORDS SUMMARY | 2024-10-14 08:33 | XMS_ITS | Clinical Summary ---
Author Organization [employer] Address [address] [facility] [address] [place] [address] Care Team Providers Care Sandfill Operator Surface Name Role Phone Jesus Cote MD Primary Care Prov ider Allergies Active Allergy Reactions Criticality Noted Date Comments Pollen Extract Itching,Runny nose 11/04/2022 Medications cetirizine (ZyrTEC) 10 MG tablet take 1 tablet by oral route every day as needed 12/10/19 22 Active DULoxetine (Cymbalta) [address] capsule Take 60 mg by mouth in the morning. 04/19/20 23 Active traZODone (Desyrel) 50 MG tablet Take 50 mg by mouth if needed at bedtime. 03/30/20 23 Active verapamil SR (Calan SR) 120 MG ER tabletIndicatio ns:Migraine without aura and without status migrainosus, not intractable TAKE 1 TABLET (120 MG) BY MOUTH AT BEDTIME. DO NOT CRUSH OR CHEW. 90 tablet 3 10/26/19 24 025 Active fluticasone furoate (Arnuity Ellipta) 200 MCG/ACT inhalerIndicati ons:Mild persistent asthma without complication Inhale 1 puff Once per day. 1 each 11 10/26/19 24 025 Active Ventolin HFA 108 (90 Base) MCG/ACT inhaler INHALE 1 PUFF IN THE MORNING, AT NOON, IN THE EVENING, AND AT BEDTIME. 18 g 1 02/03/20 24 Active fluticasone (Flonase) 50 MCG/ACT nasal spray ADMINISTER 1-2 SPRAYS INTO EACH NOSTRIL IN THE MORNING. SHAKE GENTLY. BEFORE FIRST USE, PRIME PUMP. AFTER USE, CLEAN TIP AND REPLACE CAP. 48 mL 1 05/02/20 24 025 Active ibuprofen 800 MG tabletIndicatio ns:Pain in other joint TAKE 1 TABLET BY MOUTH EVERY 8 HOURS NEEDED FOR MILD PAIN. 90 tablet 1 09/28/19 25 Active EPINEPHrine (Epipen) 0.3 MG/0.3ML injection syringe Inject 0.3 mL (0.3 mg) as directed 1 (one) time for 1 dose. use as directed for allergic reaction and then call 911 0.3 mL 10/14/19 25 Active gabapentin (Neurontin) 800 MG tablet Take 1 tablet (800 mg) by mouth 3 times daily. 270 tablet 3 10/14/19 25 026 Active montelukast (Singulair) 10 MG tablet Take 1 tablet (10 mg) by mouth at bedtime. 90 tablet 1 10/14/19 25 Active gabapentin (Neurontin) 800 MG tablet take 1 tablet by oral route every bedtime 07/06/19 21 025 Discontinued(R eorder (will not trigger notification to Pharmacy)) EPINEPHrine (Epipen) 0.3 MG/0.3ML injection syringe Inject 0.3 mL (0.3 mg) as directed 1 (one) time for 1 dose. use as directed for allergic reaction and then call 911 0.3 mL 07/27/19 24 025 Discontinued(R eorder (will not trigger notification to Pharmacy)) loratadine (Claritin) 10 MG tablet TAKE 1 TABLET BY MOUTH ONCE A DAY NEEDED FOR ALLERGIES 90 tablet 3 10/02/19 24 025 Discontinued(T herapy completed) montelukast (Singulair) 10 MG tablet TAKE 1 TABLET BY MOUTH EVERYDAY AT BEDTIME 90 tablet 1 04/04/20 24 025 Discontinued(R eorder (will not trigger notification to Pharmacy)) ibuprofen 800 MG tabletIndicatio ns:Pain in other joint TAKE 1 TABLET BY MOUTH EVERY 8 HOURS NEEDED FOR MILD PAIN. 90 tablet 1 07/22/19 25 025 Discontinued Active Problems Problem Noted Date Diagnosed Date Benzodiazepine dependence, continuous 10/13/2024 Male erectile disorder (CODE) 10/13/2024 Assessment & Plan (10/13/2024 1:39 PM EDT): Will check testosterone levels, if necessary will discuss treatment options on next appointment Mass of right testis 10/13/2024 Assessment & Plan (10/13/2024 1:40 PM EDT): Will order a testicular ultrasound, no warning signs Allergic reaction 01/13/2024 Assessment & Plan (01/13/2024 10:56 PM EDT): Patient has been developing allergic reactions to food, will send to manufacturing production technician for evaluation, he has epipen Chronic pain [...] Encounters Date Type Department Care Team Description 10/13/2024 11:30 AM EDT Telemedicine [facility] [address] [place] [address] Jesus Cote MD Benzodiazepine dependence, continuous (CMS/HCC) (Primary Dx); Hemiplegia of dominant side (CMS/HCC); Severe recurrent major depression without psychotic features (CMS/HCC); Mild intermittent asthma without complication; Male erectile disorder (CODE); Mass of right testis 10/13/2024 Travel 10/07/2024 Telephone [facility] [address] [place] [address] Jesus Cote MD Med Refill 09/25/[address] [facility] [address] [place] [address] Jesus Cote MD Pain in other joint 09/19/2024 Outside Procedure [facility] [address] [place] [address] Sree, Delilah, OD Presbyopia (Primary Dx) 09/16/2024 2:00 PM EDT Office Visit [facility] [address] [place] [address] Sree, Delilah, OD Regular astigmatism of both eyes (Primary Dx) 08/22/2024 2:15 PM EDT Office Visit [facility] [address] [place] [address] Sree, Delilah, OD Presbyopia (Primary Dx) 07/29/2024 Population Health Risk Score [facility] () Department [address] [place] [phone] Provider, Population Health Generic 07/20/[address] [facility] [address] [place] [address] Jesus Cote MD Pain in other joint from Last 3 Months Family History Medical History Relation Name Comments Heart disease Sister Relation Name Status Comments Sister Social History Tobacco Use Types Packs/Day Years Used Date Smoking Tobacco: Never Smokeless Tobacco: Never Tobacco Cessation:Counseling Given: Not Answered Depression Answer Date Recorded Patient Health Questionnaire-9 Score 12 10/13/2024 Patient Health Questionnaire-9 Score 12 10/13/2024 Last PHQ-9: Questionnaire Data Not on file 0 10/13/2024 Depression Answer Date Recorded Patient Health Questionnaire-2 Score 4 10/13/2024 Sex and Gender Information Value Date Recorded [...] 07/27/2023 1:15 PM EDT Plan of Treatment Upcoming Encounters Date Type Department Care Team (Late st Contact Info) Description 11/09/2024 10:30 AM EDT Telemedicine [facility] [address] [place] [address] Jesus Cote MD [address] [place] [address] Health Maintenance Due Date Last Done Comments CT Colonography 1976 FIT DNA/Cologuard 1976 FIT 1976 FOBT [...] history exists Tobacco Screening 06/02/2024 06/02/2023 Depression Monitoring 04/15/2025 10/13/2024, 025 Dental X-Ray: Full Mouth 05/01/2026 023, 09/19/2016, 09/06/2010 Zoster Vaccines (1 of 2) 2026 Lipid Panel 12/27/2026 12/27/2021 Colonoscopy 01/03/2029 Colorectal Cancer Screening 01/03/2029 RSV Patients and Patients Aged 60 years [...] HEPATITIS C ANTIBODY NON-REACT NOREEN NON-REACT NOREEN [facility] INDEX 0.10 <1.00 [facility] Comment: ?? HCV antibody was non-reactive. There is no laboratory ?? evidence of HCV infection. ?? In most cases, no further action is required. However, if recent HCV exposure is suspected, a test for HCV RNA (test code 43779) is suggested. ?? For additional information please refer to http://education.Priori Data.Motivity Labs/faq/MGK66p4 (This link is being provided for informational/ educational purposes only.) ?? 12/27/2021 11:3 2 AM EDT us Jesus Tan MD HISTORICAL/NON ORD ERABLE LABS Final Result [facility] [address] * HIV 1/2 ANTIGEN/ANTIBODY,FOURTH GENERATION W/RFL (12/27/2021 11:32 AM EDT) Pathologist [facility] HIV-1/2 ANTIGEN AND ANTIBODIES, 4TH GENERATION W/ REFLEX NON-REACT NOREEN NON-REACT NOREEN [facility] Comment: HIV-1 antigen and HIV-1/HIV-2 [...] ? For additional information please refer to http://Gullivearth.CiiNOW/faq/MTN045 (This link is being provided for informational/ educational purposes only.) ? The performance of this assay has not been clinically validated in patients less than 2 years old. ?? 12/27/2021 11:3 2 AM EDT Jesus Tan MD LAB BLOOD ORDERABL ES Final Result [facility] [address] * LIPID PANEL, STANDARD (12/27/2021 11:32 AM EDT) Pathologist [facility] Chol/HDLC Ratio 3.4 <5.0 (calc) [facility] [...] ?? Garo BILLY et al. BRUCE. 2013;310(19): 2373-6997 ?? (http://education.Haztucesta.Motivity Labs/faq/TSZ692) Non-HDL Cholesterol 106 <130 mg/dL (calc) [facility] Comment: For patients with diabetes plus 1 major ASCVD risk ?? factor, treating to a non-HDL-C goal of <100 mg/dL ?? (LDL-C of <70 mg/dL) is considered a therapeutic ?? option. Triglycerides 142 <150 mg/dL [facility] 12/27/2021 11:3 2 AM EDT us Jesus Tan MD LAB BLOOD ORDERABL ES Final Result [facility] [address] from Last 3 Months or Most Recently Relevant to Health Maintenance Insurance [facility] STAND ADULT * Guarantor: Maxi Zhao Account Type Relation to Patient Date of Phone Billing Address Personal/Family Self [address] [place] [address] * Guarantor: Maxi Zhao Account Type Relation to Patient Date of Phone Billing Address Personal/Family Self [address] [place] [address] * Guarantor: Maxi Zhao Account Type Relation to Patient Date of Phone Billing Address Personal/Family Self [address] [place] [address] Care Teams Sandfill Operator Surface Relationship Specialty Start Date End Date Jesus Cote MD [address] [place] [address] PCP - General Internal Medicine 10/16/19
[2024-10-14 14:57] LABS: MANUAL DIFF FLAG NO
[2024-10-14 15:02] LABS: Basophils Absolute Auto 0.1 X10*3/uL (0.0-0.2); Basophils Percent Auto 1.4 % (0-2); Eosinophils Absolute Auto 0.3 X10*3/uL (0.0-0.4); Eosinophils Percent Auto 4.4 % (0-4); Hematocrit 39.2 % (42.0-52.0); Imm Gran Abs Auto 0.04 X10*3/uL (0.00-0.03); Imm Gran Pct Auto 0.7 % (0.0-0.4); Lymphocytes Absolute Auto 2.1 X10*3/uL (1.2-4.9); Lymphocytes Percent Auto 37.2 % (20-40); Mean Corpuscular HGB Conc 33.2 g/dl (31.0-36.0); Mean Corpuscular Hemoglobin 28.7 pg (27.0-33.0); Mean Corpuscular Volume 86.5 fL (80.0-98.0); Mean Platelet Volume 10.8 fL (9.4-12.4); Monocytes Absolute Auto 0.4 X10*3/uL (0.1-1.2); Monocytes Percent Auto 6.8 % (2-11); Neutrophils Absolute Auto 2.8 x10*3/uL (2.0-8.3); Neutrophils Percent Auto 49.5 % (45-73); Platelet Count 250 X10*3/uL (160-400); Red Blood Count 4.53 X10*6/uL (4.60-5.80); Red Cell Distribution Width 12.9 % (11.0-16.0); White Blood Count 5.7 X10*3/uL (4.8-10.8)
[2024-10-14 15:40] LABS: PSA,Total (Free>4and<10) 1.79 ng/mL (0.00-4.00)
[2024-10-14 16:11] LABS: Alanine Aminotransferase 25 U/L (0-40); Albumin Level 4.2 g/dL (3.5-5.0); Anion Gap 7 (12-20); Aspartate Amino Transferase 44 U/L (5-37); Bilirubin Total 0.5 mg/dL (0.0-1.0); Blood Urea Nitrogen 12 mg/dL (9-16); Calcium 8.8 mg/dL (8.4-10.2); Carbon Dioxide 29 mmol/L (22-29); Chloride 107 mmol/L (96-108); Cholesterol 151 mg/dL (<200); Estimated Glomerular Filt Rate > 60; Glucose Random 86 mg/dL (60-115); HDL Cholesterol 39 mg/dL (>40); LDL Cholesterol Calculated 82 mg/dL (<100); Potassium 3.7 mmol/L (3.3-5.1); Sodium 139 mmol/L (135-145); Total Protein 6.2 g/dL (6.5-8.0); Triglycerides 151 mg/dL (<150)
[2024-10-14 16:30] LABS: TSH reflex Free T4 0.98 uIU/mL (0.32-4.0)
[2024-10-14 17:08] LABS: Alkaline Phosphatase 57 U/L (39-117)
[2024-10-20 20:58] LABS: Testosterone, Total 393 ng/dL (250-1100)
== END 2024-10-14 08:31 | disposition home or self-care (01) ==
LOC: HO.CHCLDS 08:30
PROVIDERS: Visit Provider Internal Medicine
DX: F33.2 Major depressive disorder, recurrent severe without psychotic features (principal); F52.21 Male erectile disorder
CPT/HCPCS: 36415; 80053; 80061; 84153; 84402; 84403; 84443; 85025

== ENCOUNTER 2024-11-28 13:52 | Outpatient (REF) | payer MEDICAID, SELFPAY ==
--- NOTE | ~2024-11-28 | US_ITS ---
CLINICAL HISTORY: right testicle mass US Scrotum with Doppler Comparison: None provided Findings: Right testicle normal echotexture, 4.7 x 1.8 x 3 cm. Left testicle normal echotexture, 4.3 x 1.6 x 2.3 cm. Normal color flow and arterial/venous spectral tracing of both testicles. Complex cyst of the right epididymis 8 x 6 x 9 mm in size. No hydrocele. Right varicocele with no change post Valsalva. Bilateral tubular ectasia of the rete testes. IMPRESSION: No evidence of torsion. Complex cyst of the right epididymis. Right varicocele without change with Valsalva. Thrombosis can not be excluded. This document has been electronically signed by: Keerthi Ling MD on 11/28/2024 17:00:07
--- OUTSIDE RECORDS SUMMARY | 2024-11-28 15:04 | XMS_ITS | Encounter Summary ---
Author Organization [employer] Address [address] [facility] [address] [place] [address] Care Team Providers Care Map And Chart Mounter Name Role Phone Jesus Cote MD Primary Care Prov ider Reason for Visit * Reason Onset Date Comments Referral 2022 Encounter Details Date Type Department Care Team ([facility] Contact Info) Description 2022 Telephone [facility] [address] [place], [place] [phone] Jesus Cote MD [address] [place] [address] Referral Social History Tobacco Use Types Packs/Day [...] 2022 3:00 PM EDT Referral faxed to [facility] pain management. Office will contact patient with appointment. Letter mailed to pt with information. * Telephone Encounter - Tara Perez - 2022 1:06 PM EDT Tc from pt requesting status on referral made on 11/14/2022. Please contact pt at [phone] O[employer]i Speaker documented in this encounter Plan of Treatment Upcoming Encounters Date Type Department Care Team (Late st Contact Info) Description 02/07/2025 1:00 PM EDT Office Visit [facility] [address] [place] [address] Jesus Cote MD [address] [place] [address] documented as of this encounter Visit Diagnoses Not on filedocumented in this encounter Care Teams Map And Chart Mounter Relationship Specialty Start Date End Date Jesus Cote MD [address] [place] [address] PCP - General Internal Medicine 10/16/19 documented as of this encounter
== END 2024-11-28 13:53 | disposition home or self-care (01) ==
LOC: HO.US 13:52
PROVIDERS: PCP Internal Medicine; Visit Provider Internal Medicine
DX: N50.89 Other specified disorders of the male genital organs (principal)
CPT/HCPCS: 76870

== ENCOUNTER → 2024-11-28 13:54 | Outpatient (BNV) | payer MEDICAID, SELFPAY | PROVIDERS: PCP Internal Medicine; Visit Provider Nuclear Medicine | DX: N50.9 Disorder of male genital organs, unspecified (principal) | CPT/HCPCS: 76870; 93975 ==

== ENCOUNTER 2025-01-06 14:24 | Outpatient (AMB) | payer MEDICAID, SELFPAY ==
--- NOTE | 2025-01-06 14:26 | A.OFFVIS_ITS ---
Intake Visit Reasons: Testicular pain with complex cyst, low testosteron Intake Note: New Patient is present for testicular pain Urology Rx: none Blood Thinners: none Imaging completed: 11/28/24 Labs done : 10/14/24 Total testosterone :393 Certified Endoscopy Technician Required: No Accompanied by: Self / Same As Patient Allergies ENVIROMENTAL Allergy (Intermediate, Uncoded 12/10/22 17:14) SNEEZING, COUGH, SOB HPI Comments Details: Maxi is a pleasant male. He is a patient of Dr. Michael. He is seen for the following urologic conditions - testicular discrepancy - question borderline testosterone Testosterone borderline Long-term chronic pain syndrome Suggest Trial daily tadalafil with three-month follow-up repeat labs Reassurance provided to regarding right epididymal cyst Low testosterone Labs - 03/05 357, 10/09 393 Testicular discrepancy Right testicle larger than left May have prior trauma Scarring of right epididymis Small epididymal cyst seen on ultrasound [facility] Medical History (Updated 01/06/25 @ 14:53 by Faisal Best MD) Chronic pain syndrome Complex regional pain syndrome i of right upper limb Sacroiliitis Urinary retention Chronic back pain Right hemiparesis Mood disorder Depression Asthma Abdominal lipoma Surgical History Hx of colonoscopy History of surgery Hx of colonoscopy Hx of exploratory laparotomy History of ankle surgery History of prostate surgery H/O toe surgery Family History Father Colon polyp Mother Colon polyp Hypertension Social History Household Members: None Alcohol intake: never Comment: Right Hemiparesis Patient Tobacco Use Status: Never used Tobacco Substance Use Type: Marijuana Review of Systems Const Denies chills and Denies fever(s) Card Reports no additional complaints and Denies syncope Resp Denies cough GI Denies abdominal pain and Denies heartburn Reports as per HPI and Denies change in libido Neuro Denies syncope Psych Denies change in libido Endo Denies change in libido Physical Exam Const General: cooperative, healthy appearing, comfortable and no acute distress Orientation/consciousness: patient oriented x3 HEENT Face and sinus: Yes normal facial exam Mouth: moist mucous membranes Neck Neck: Yes normal visual inspection, Yes full ROM and Yes trachea midline Chest Chest palpation & inspection: normal inspection of the chest Resp Effort & Inspection: normal respiratory effort, able to speak in complete sentences and no respiratory distress GI Inspection: Yes normal to inspection Back/Spine/Pelvis Cervical Spine: normal cervical lordosis Thoracic/Lumbar Spine: thoracic and lumbar spine normal to inspection Skin General skin exam: no rashes or lesions noted Neuro General: patient oriented x3, gait normal, tone normal and moves all extremities Extrem General: Yes normal to inspection and Yes capillary refill normal Assessment & Plan Assessment & Plan (1) Erectile dysfunction due to arterial insufficiency: Code(s): N52.01 - Erectile dysfunction due to arterial insufficiency Category: Medical Plan Repeat hormonal labs 10 weeks after starting tadalafil Three-month follow-up office nurse-practitioner Orders: Orders Testosterone, Free/Total 10 Weeks N52.01 - Erectile dysfunction due to arterial insufficiency Lutenizing Hormone 10 Weeks N52.01 - Erectile dysfunction due to arterial insufficiency Estrad Free (Tot Ultra + Free) 10 Weeks N52.01 - Erectile dysfunction due to arterial insufficiency Follicle Stimulating Hormone 10 Weeks N52.01 - Erectile dysfunction due to arterial insufficiency Medications: New tadalafil 5 mg PO DAILY 90 tabs 0RF sexual activity 90 days N52.01 - Erectile dysfunction due to arterial insufficiency Patient Instructions: This note is constructed using voice recognition software. While every effort has been made to ensure accuracy box office agent errors may have been included. Imaging studies, laboratory and physical exam results were discussed and reviewed in detail. No major barriers to patient understanding were identified. An opportunity to ask questions regarding the treatment plan was provided. All questions were answered. The patient expressed understanding and agreement with the above treatment plan. The patient is aware they should contact our office by phone for worsening of their current condition or the appearance of new urologic symptoms. Compliance is encouraged with any medications and followup testing that is ordered. It is a privilege to participate in the urologic care of your patient. If you have any questions or concerns regarding treatment for the above conditions, or other urologic issues, please do not hesitate to contact me. The office telep jim contact is [phone]. Sincerely, Dr Faisal Best MD, [facility] - Urology Compassionate Specialist Care for the Genitourinary System Coding Level of Care Code New Pt Level 4 (65441) Diagnoses Erectile dysfunction due to arterial insufficiency N52.01
--- OUTSIDE RECORDS SUMMARY | 2025-01-06 14:26 | XMS_ITS | Clinical Summary ---
Author Organization [employer] Address [address] [place] [address] [address] [place] [address] Care Team Providers Care Block Cableman Name Role Phone Jesus Cote MD Primary Care Prov ider Allergies Active Allergy Reactions Criticality Noted Date Comments Pollen Extract Itching,Runny nose 11/04/2022 Medications cetirizine (ZyrTEC) 10 MG tablet take 1 tablet by oral route every day as needed 2 Active DULoxetine (Cymbalta) [address] capsule Take 60 mg by mouth in the morning. 3 Active traZODone (Desyrel) 50 MG tablet Take 50 mg by mouth if needed at bedtime. 3 Active Ventolin HFA 108 (90 Base) MCG/ACT inhaler INHALE 1 PUFF IN THE MORNING, AT NOON, IN THE EVENING, AND AT BEDTIME. 18 g 1 4 Active EPINEPHrine (Epipen) 0.3 MG/0.3ML injection syringe Inject 0.3 mL (0.3 mg) as directed 1 (one) time for 1 dose. use as directed for allergic reaction and then call 911 0.3 mL 5 Active gabapentin (Neurontin) 800 MG tablet Take 1 tablet (800 mg) by mouth 3 times daily. 270 tablet 3 5 10/14/19 26 Active montelukast (Singulair) 10 MG tablet Take 1 tablet (10 mg) by mouth at bedtime. 90 tablet 1 5 Active verapamil SR (Calan SR) 120 MG ER tabletIndications :Migraine without aura and without status migrainosus, not intractable TAKE 1 TABLET (120 MG) BY MOUTH AT BEDTIME. DO NOT CRUSH OR CHEW. 90 tablet 3 5 10/29/19 26 Active fluticasone (Flonase) 50 MCG/ACT nasal spray SPRAY 1-2 SPRAYS INTO EACH NOSTRIL IN THE MORNING. SHAKE GENTLY. BEFORE FIRST USE, PRIME PUMP. AFTER USE, CLEAN TIP AND REPLACE CAP. 48 mL 1 5 Active sildenafil (Viagra) 50 MG tablet Take 1 tablet (50 mg) by mouth if needed each day for erectile dysfunction. 20 tablet 5 Active ibuprofen 800 MG tabletIndications :Pain in other joint TAKE 1 TABLET BY MOUTH EVERY 8 HOURS NEEDED FOR MILD PAIN. 90 tablet 1 5 Active fluticasone furoate (Arnuity Ellipta) 200 MCG/ACT inhalerIndication s:Mild persistent asthma without complication INHALE 1 PUFF BY MOUTH ONCE PER DAY 1 each 5 Active Active Problems Problem Noted Date Diagnosed Date Benzodiazepine dependence, continuous 10/13/2024 Male erectile disorder (CODE) 10/13/2024 Assessment & Plan (11/09/2024 1:19 PM EDT): PSA and testosterone were stable, will start on sildenafil, follow up as needed Assessment & Plan (10/13/2024 1:39 PM EDT): Will check testosterone levels, if necessary will discuss treatment options on next appointment Mass of right testis 10/13/2024 Assessment & Plan (11/09/2024 1:18 PM EDT): Pending u/s, will follow up with results Assessment & Plan (10/13/2024 1:40 PM EDT): Will order a testicular ultrasound, no warning signs Allergic reaction 01/13/2024 Assessment & Plan (01/13/2024 10:56 PM EDT): Patient has been developing allergic reactions to food, will send to ceo and co founder for evaluation, he has epipen Chronic pain [...] Encounters Date Type Department Care Team Description 12/06/2024 Refill [facility] [address] [place] [address] Jesus Cote MD Mild persistent asthma without complication 11/22/2024 Refill [facility] [address] [place] [address] Jesus Coet MD Pain in other joint 11/09/2024 10:30 AM EDT Telemedicine [facility] [address] [place] [address] Jesus Cote MD Mass of right testis (Primary Dx); Male erectile disorder (CODE) 11/09/2024 Travel 11/08/2024 Telephone [facility] [address] [place] [address] Jesus Cote MD chart prep 10/28/2024 Refill [facility] [address] [place] [address] Jesus Cote MD 10/28/2024 Refill [facility] [address] [place] [address] Prachi Negro MD Migraine without aura and without status migrainosus, not intractable 10/24/2024 Results Follow-Up [facility] [address] [place] [address] Jesus Cote MD CBC auto differential, Comprehensive Metabolic Panel, Lipid Panel, Standard, Additional followed-up results: 4 10/13/2024 11:30 AM EDT Telemedicine [facility] [address] [place] [address] Jesus Cote MD Benzodiazepine dependence, continuous (CMS/HCC) (Primary Dx); Hemiplegia of dominant side (CMS/HCC); Severe recurrent major depression without psychotic features (CMS/HCC); Mild intermittent asthma without complication; Male erectile disorder (CODE); Mass of right testis 10/13/2024 Travel 10/07/2024 Telephone [facility] [address] [place] [address] Jesus Cote MD Med Refill from Last 3 Months Family History Medical [...] Questionnaire Data Not on file 0 10/13/2024 Housing Stability Answer Date Recorded What is your housing situation today? I have kayleigh peterson 11/09/[address] you li ve. Do you have problems with any of the following? None of the above 11/09/2024 Food Insecurity Answer Date Recorded Within the past 12 months, y ou worried that your food would run out before you got money to buy more: Never True 11/09/2024 Within the past 12 months,th e food you bought just didn't last and you didn't have enough money to get more: Never True Transportation Answer Date Recorded In the past 12 months, has l ack of transportation kept you from medical appts, meetings, work or from getting things needed for daily living? No 11/09/2024 Utilities Answer Date Recorded In the past 12 months, has t he electric, gas, oil or water company threatened to shut off services in your home? No 11/09/2024 Depression Answer Date Recorded Patient Health Questionnaire-2 Score 4 10/13/2024 Internet Access Answer Date Recorded Internet Access Q1 Yes 11/09/2024 Internet Access Q2 Not on file 11/09/2024 Sex and Gender Information Value Date Recorded Sex Assigned at Male 03/17/2022 10:16 AM EDT Legal Sex Male 10:16 AM EDT Gender Identity Male 03/17/2022 10:16 AM EDT Sexual Orientation Straight 03/17/2022 10 :16 AM EDT Last Filed Vital Signs Vital Sign Reading Time Taken Comments Blood Pressure 131/87 07/27/2023 1:15 PM EDT Pulse 99 07/27/2023 1:15 PM EDT Temperature 36.6 C (97.8 F) 07/27/2023 1:15 PM EDT Respiratory Rate 20 07/27/2023 1:15 PM EDT [...] 02/07/2025 1:00 PM EDT Office Visit [facility] [address] [place], [place] [phone] Jesus Cote MD [address] [place] [address] Health Maintenance Due Date Last Done Comments CT Colonography 1975 FIT DNA/Cologuard 1975 FIT 1975 FOBT 1975 Sigmoidoscopy 1975 Disability Screening 1975 Family Planning (PISQ) 12/02/1991 Hepatitis B Vaccines (3 of 3 - 19+ 3-dose series) 02/28/2010 01/03/2010, 12/21/2008 Pneumococcal Vaccine: Pediatrics (0 to 5 Years) and At-Risk Patients (6 to 49) Years (2 of 2 - PCV) 07/07/2015 07/07/2014 DTaP/Tdap/Td Vaccines (2 - Td or Tdap) 06/16/2022 06/16/2012 Dental Oral Exam 10/31/2023 04/30/2023, , 02/08/2020, Additional history exists Dental Prophylaxis 10/31/2023 04/30/2023, 0 01/08/2022, 10/26/2020, Additional history exists COVID-19 Vaccine ( season) 2024 03/20/2022, 04/15/2021, 08/22/2020, Additional history exists Dental X-Ray: Bitewings 05/01/2024 04/30/20, 01/08/2022, 02/08/2020, Additional history exists Tobacco Screening 06/02/2024 06/02/2023 Influenza Vaccine (#1) 2025 , 03/20/2022, 03/13/2021, Additional history exists Depression Monitoring 04/15/2025 10/13/2024, 025 Alcohol/Substance Use Screening 11/09/2025 11/09/2024 SDOH Screening 11/09/2025 11/09/2024 Dental X-Ray: Full Mouth 05/01/2026 023, 09/19/2016, 09/06/2010 Zoster Vaccines (1 of 2) 2026 Colonoscopy 01/03/2029 01/04/2024 Colorectal Cancer Screening 01/03/2029 Lipid Panel 10/14/2029 10/14/2024, 12/27/2021 RSV Patients and Patients Aged 60 years or older (1 - 1-dose 75+ series) 12/02/2051 HIV Screening Completed 12/27/2021 Hepatitis C Screening Completed 12/27/2021 HIB Vaccines Aged Out No longer eligi [...] Procedure Name Priority Date/Time Associated Diagnosis Comments US SCROTUM Routine 11/28/2024 5:00 PM EDT Mass of right testis TESTOSTERONE, FREE (DIALYSIS) AND TOTAL,MS Routine 10/14/2024 8:31 AM EDT Male erectile disorder (CODE) PSA, TOTAL WITH REFLEX TO PSA, FREE Routine 10/14/2024 8:31 AM EDT Male erectile disorder (CODE) TSH W/REFLEX TO FT4 Routine 10/14/2024 8 :31 AM EDT Severe recurrent major depression without psychotic features (CMS/HCC) LIPID PANEL, STANDARD Routine 10/14/2024 8:31 AM EDT Severe recurrent major depression without psychotic features (CMS/HCC) COMPREHENSIVE METABOLIC PANEL Routine 10/14/2024 8:31 AM EDT Severe recurrent major depression without psychotic features (CMS/HCC) CBC WITH AUTO DIFFERENTIAL Routine 10/14/2024 8:31 AM EDT Severe recurrent major depression without psychotic features (CMS/HCC) HM COLONOSCOPY Routine 01/04/2024 PROPHYLAXIS - ADULT Routine 04/30/2023 1 1:00 [...] GENERATION W/RFL Routine 12/27/2021 11:32 AM EDT from Last 3 Months or Most Recently Relevant to Health Maintenance Results * US Scrotum (11/28/2024 5:00 PM EDT) Anatomical Region Laterality Modality Body Ultrasound 11/28/2024 5:00 PM EDT Narrative 11/28/2024 5:01 PM EDT [place] [address] Ultrasound Report Signed Patient: Maxi Zhao MR#: [id number] : 1975 Acct:[id number] Age/Sex: 48 / M ADM Date: 11/28/24 Loc: . Attending Dr: Jesus Tan MD Ordering Physician: Jesus Cote MD Date of Service: 11/28/24 Procedure(s): US scrotum Accession Number(s): [id number] cc: Jesus Cote MD CLINICAL HISTORY: right testicle mass US Scrotum with Doppler Comparison: None provided Findings: Right testicle normal echotexture, 4.7 x 1.8 x 3 cm. Left testicle normal echotexture, 4.3 x 1.6 x 2.3 cm. Normal color flow and arterial/venous spectral tracing of both testicles. Complex cyst of the right epididymis 8 x 6 x 9 mm in size. No hydrocele. Right varicocele with no change post Valsalva. Bilateral tubular ectasia of the rete testes. IMPRESSION: No evidence of torsion. Complex cyst of the right epididymis. Right varicocele without change with Valsalva. Thrombosis can not be excluded. This document has been electronically signed by: Keerthi Ling MD on 11/28/2024 17:00:07 Dictated By: Keerthi Ling MD Signed By: <Electronically signed by Keerthi Ling MD in OV> 11/28/241699 DD/ 99 TD/TT: 11/28/241699 Shellfish Weigher: Procedure Note Donotuseinterpreter, Image - 11/28/2024 [place] [address] Ultrasound Report Signed Patient: Didier Zhao#: [id number] : 1975Acct:[id number] Age/Sex: 48 / MADM Date: 11/28/24 Loc: HO.US Attending Dr: Jesus Tan MD Ordering Physician: Jesus Cote MD Date of Service: 11/28/24 Procedure(s): US scrotum Accession Number(s): [id number] cc: Jesus Cote MD CLINICAL HISTORY: right testicle mass US Scrotum with Doppler Comparison: None provided Findings: Right testicle normal echotexture, 4.7 x 1.8 x 3 cm. Left testicle normal echotexture, 4.3 x 1.6 x 2.3 cm. Normal color flow and arterial/venous spectral tracing of both testicles. Complex cyst of the right epididymis 8 x 6 x 9 mm in size. No hydrocele. Right varicocele with no change post Valsalva. Bilateral tubular ectasia of the rete testes. IMPRESSION: No evidence of torsion. Complex cyst of the right epididymis. Right varicocele without change with Valsalva. Thrombosis can not be excluded. This document has been electronically signed by: Keerthi Ling MD on 11/28/2024 17:00:07 Dictated By: Keerthi Ling MD Signed By: <Electronically signed by Keerthi Ling MD in OV> 11/28/241699 DD/ 99 TD/TT: 11/28/241699 Shellfish Weigher: Jesus Tan MD IMG US PROCEDURES Final Result * TSH W/Reflex to FT4 (10/14/2024 8:31 AM EDT) TSH reflex Free T4 0.98 0.32 - 4.0 uIU/mL [facility] Blood Venous blood specimen / Unknown 10/14/2024 8:31 AM EDT 10/14/2024 2:51 PM EDT Jesus Tan MD LAB BLOOD ORDERABL ES Final Result Performing Organization Address [facility] Co de Phone Number [facility] [address] [place] [phone] * PSA, Total With Reflex to PSA, Free (10/14/2024 8:31 AM EDT) PSA,Total (Free>4and<10) 1.79 0.00 - 4.00 ng/mL [facility] Comment:A Free PSA was not p erformed: The percentage of Free PSA can be used to enhance the differentiation of prostate cancer from benign prostatic disease in subjects whose PSA levels are between 4.0 and 10.0 ng/mL. For subjects whose PSA levels are below 4.0 or above 10.0 ng/mL, the risk of prostate cancer is determined on the basis of the PSA alone. Therefore the % Free PSA is recommended only for those subjects whose PSA levels are between 4.0 and 10.0 ng/mL.PSA methodology: Paul Alinity i ChemiluminescentMicroparticle Immunoassay (CMIA) 10/14/2024 8:31 AM EDT 10/14/2024 2:51 PM EDT Jesus Tan MD LAB BLOOD ORDERABL ES Final Result Performing Organization Address [facility]/ZIP Co de Phone Number [facility] [address] [place] [phone] * (ABNORMAL) CBC auto differential (10/14/2024 8:31 AM EDT) White Blood Count 5.7 4.8 - 10.8 X10*3/uL [facility] Red Blood Count 4.53(L) 4.60 - 5.80 X10*6/uL [facility] Hemoglobin 13.0(L) 14.0 - 18.0 g/dl [facility] Hematocrit 39.2(L) 42.0 - 52.0 % [facility] Mean Corpuscular Volume 86.5 80.0 - 98.0 fL [facility] Mean Corpuscular Hemoglobin 28.7 27.0 - 33.0 pg [facility] Mean Corpuscular HGB Conc 33.2 31.0 - 36.0 g/dl [facility] Red Cell Distribution Width 12.9 11.0 - 16.0 % [facility] Platelet Count 250 160 - 400 X10*3/uL [facility] Mean Platelet Volume 10.8 9.4 - 12.4 fL [facility] Neutrophils Percent Auto 49.5 45 - 73 % [facility] Imm Gran Pct Auto 0.7(H) 0.0 - 0.4 % [facility] Lymphocytes Percent Auto 37.2 20 - 40 % [facility] Monocytes Percent Auto 6.8 2 - 11 % [facility] Eosinophils Percent Auto 4.4(H) 0 - 4 % [facility] Basophils Percent Auto 1.4 0 - 2 % [facility] NRBC Pct Auto 0.0 0.0 - 0.2 /100WBC [facility] Neutrophils Absolute Auto 2.8 2.0 - 8.3 x10*3/uL [facility] Imm Gran Abs Auto 0.04(H) 0.00 - 0.03 X10*3/uL [facility] Lymphocytes Absolute Auto 2.1 1.2 - 4.9 X10*3/uL [facility] Monocytes Absolute Auto 0.4 0.1 - 1.2 X10*3/uL [facility] Eosinophils Absolute Auto 0.3 0.0 - 0.4 X10*3/uL [facility] Basophils Absolute Auto 0.1 0.0 - 0.2 X10*3/uL [facility] NRBC Abs Auto 0.000 0.0 - 0.012 X10*3/uL [facility] Blood Venous blood specimen / Unknown 10/14/2024 8:31 AM EDT 10/14/2024 2:51 PM EDT us Jesus Tan MD LAB BLOOD ORDERABL ES Final Result [facility] [address] [place] [phone] [phone] * Testosterone, Free (Dialysis) And Total, MS (10/14/2024 8:31 AM EDT) Testosterone, Total 393 250 - 1100 ng/dL [facility] Comment:For additional infor mation, please refer tohttp://education.SunnyBump/faq/[email or web address](This link is being provided for informational/educational purposes only.)This test was developed and its analytical performancecharacteristics have been determined by [employer]. It hasnot been cleared or approved by the U.S. Food and DrugAdministration. This assay has been validated pursuantto the CLIA regulations and is used for clinicalpurposes. Testosterone, Free 55.0 35.0 - 155.0 pg/mL [facility] Comment:This test was develo ped and its analytical performancecharacteristics have been determined by [employer] [place], [place]. It hasnot been cleared or approved by the U.S. Food and DrugAdministration. This assay has been validated pursuantto the CLIA regulations and is used for clinicalpurposes.THIS TEST WAS PERFORMED AT:[employer] [id number] [place] [id number] DARNELL MD,PHD Blood Venous blood specimen / Unknown 10/14/2024 8:31 AM EDT 10/14/2024 2:51 PM EDT Jesus Tan MD LAB BLOOD ORDERABL ES Final Result Performing Organization Address [facility] Co de Phone Number [facility] [address] [place] [phone] * (ABNORMAL) Lipid Panel, Standard (10/14/2024 8:31 AM EDT) Triglycerides 151(H) <150 mg/dL [facility] Comment:Desirable Triglyceri de: less than 150 mg/dLBorderline High Triglyceride 150-199 mg/dLHigh Triglyceride: 200-499 mg/dLVery High Triglyceride: greater than or equal to 5OO mg/dL Cholesterol 151 <200 mg/dL [facility] Comment:Desirable Cholestero l: less than 200 mg/dLBorderline High Cholesterol: 200-239 mg/dLHigh Cholesterol: greater than 239 mg/dL LDL Cholesterol Calculated 82 <100 mg/dL [facility] Comment:Desirable LDL: less than 100 mg/dLNear Optimal/Above Optimal LDL: 110- 129 mg/dLBorderline High LDL: 130-159 mg/dLHigh LDL: 160-189 mg/dLVery High LDL: greater than or equal to 190 mg/dL HDL Cholesterol 39(L) >40 mg/dL [facility] Comment:Desirable HDL: great er than 40 mg/dL Note: This HDL assay may give artificially low results in patients with liver disease. Blood Venous blood specimen / Unknown 10/14/2024 8:31 AM EDT 10/14/2024 2:51 PM EDT us Jesus Tan MD LAB BLOOD ORDERABL ES Final Result Performing Organization Address [facility]/ZIP Co de Phone Number [facility] [address] [place] [phone] * (ABNORMAL) Comprehensive Metabolic Panel (10/14/2024 8:31 AM EDT) Sodium 139 135 - 145 mmol/L [facility] Potassium 3.7 3.3 - 5.1 mmol/L [facility] Chloride 107 96 - 108 mmol/L [facility] Carbon Dioxide 29 22 - 29 mmol/L [facility] Anion Gap 7(L) 12 - 20 [facility] Urea Nitrogen (BUN) 12 9 - 16 mg/dL [facility] Creatinine, Serum 0.62 0.5 - 1.4 mg/dL [facility] Estimated Glomerular Filt Rate >60 [facility] Comment:Chronic Kidney Disea se: Estimated GFR < 60 mL/min/1.97h5Kejnor Kidney Disease: Estimated GFR < 15 mL/min/1.73m2 Glucose 86 60 - 115 mg/dL [facility] Calcium 8.8 8.4 - 10.2 mg/dL [facility] Bilirubin, Total 0.5 0.0 - 1.0 mg/dL [facility] Aspartate Amino Transferase 44(H) 5 - 37 U/L [facility] Alanine Aminotransferase 25 0 - 40 U/L [facility] Total Protein 6.2(L) 6.5 - 8.0 g/dL [facility] Albumin Level 4.2 3.5 - 5.0 g/dL [facility] Alkaline Phosphatase 57 39 - 117 U/L [facility] Blood Venous blood specimen / Unknown 10/14/2024 8:31 AM EDT 10/14/2024 2:51 PM EDT us Jesus Tan MD LAB BLOOD ORDERABL ES Final Result [facility] [address] [place] [phone] * (ABNORMAL) Hm Colonoscopy (01/04/2024) Colonoscopy Abnormal(A ) Normal Narrative Allison Arambula RN - 01/04/2024 Repeat Colonoscopy in 5 years if polyps are adenomatous and due to a hx of adenomatous colon polyps. Historical Provider HEALTH MAINTENANCE Final Result * HEPATITIS C AB W/REFL TO HCV RNA, QN, PCR (12/27/2021 11:32 AM EDT) HEPATITIS C ANTIBODY NON-REACT NOREEN NON-REACT NOREEN [facility] INDEX 0.10 <1.00 [facility] Comment: HCV antibody was non-reactive. There is no laboratory evidence of HCV infection. In most cases, no further action is required. However, if recent HCV exposure is suspected, a test for HCV RNA (test code 85934) is suggested. For additional information please refer to http://MaxVision.SunnyBump/faq/YLI71e6 (This link is being provided for informational/ educational purposes only.) 12/27/2021 11:3 2 AM EDT Jesus Tan MD HISTORICAL/NON ORD ERABLE LABS Final Result [facility] [address] * HIV 1/2 ANTIGEN/ANTIBODY,FOURTH GENERATION W/RFL (12/27/2021 11:32 AM EDT) HIV-1/2 ANTIGEN AND ANTIBODIES, 4TH GENERATION W/ REFLEX NON-REACT NOREEN NON-REACT NOREEN [facility] Comment: HIV-1 antigen and HIV-1/HIV-2 antibodies were not detected. There is no laboratory evidence of HIV infection. PLEASE NOTE: This information has been disclosed to you from records whose confidentiality may be protected by state law. If your state requires such protection, then the state law prohibits you from making any further disclosure of the information without the specific written consent of the person to whom it pertains, or as otherwise permitted by law. A general authorization for the release of medical or other information is NOT sufficient for this purpose. For additional information please refer to http://MaxVision.SunnyBump/faq/TGI685 (This link is being provided for informational/ educational purposes only.) The performance of this assay has not been clinically validated in patients less than 2 years old. 12/27/2021 11:3 2 AM EDT Jesus Tan MD LAB BLOOD ORDERABL ES Final Result [facility] [address] [place] [address], from Last 3 Months or Most Recently Relevant to Health Maintenance Insurance [facility] C3 DENTAL-[facility] MEDICAID STAND ADULT Care Teams Block Cableman Relationship Specialty Start Date End Date MichaelJesus Marcum MD [address] [place] [phone] PCP - General Internal Medicine 10/16/19
== END 2025-01-06 14:58 | disposition home or self-care (01) ==
LOC: HO.HUSH 14:25
PROVIDERS: PCP Internal Medicine; Visit Provider Urology
DX: Z13.9 Encounter for screening, unspecified (principal); N52.01 Erectile dysfunction due to arterial insufficiency
CPT/HCPCS: 99204

== ENCOUNTER → 2025-01-06 14:24 | Outpatient (BNVA) | payer MEDICAID, SELFPAY | PROVIDERS: PCP Internal Medicine; Visit Provider Urology | DX: E29.1 Testicular hypofunction (principal); N52.01 Erectile dysfunction due to arterial insufficiency | CPT/HCPCS: 81003; 99202 ==

== ENCOUNTER 2025-03-17 10:29 | Outpatient (REF) | payer MEDICAID, SELFPAY ==
--- OUTSIDE RECORDS SUMMARY | 2025-03-17 11:51 | XMS_ITS | Encounter Summary ---
Author Organization [employer] Address [address] [facility] 7t [place] [address] Care Team Providers Care Assistant Professor Of Surgery Name Role Phone Jesus Cote MD Primary Care Prov ider Reason for Visit * Reason Onset Date Comments Nurse Triage 03/02/2025 Encounter Details Date Type Department Care Team (Late st Contact Info) Description 03/02/2025 Telephone C [facility] [address] [place], [place] [phone] Jesus Cote MD 505 [place], [place] [phone] Nurse Triage Social History Tobacco Use Types Packs/Day Years [...] encounter Miscellaneous Notes * Telephone Encounter - Leana Perez RN - 03/02/2025 12:13 PM EDT TC placed to patient [phone] in regards to below message. Patient reports has been waking up nauseous >1 week. Patient reports he has a psychiatrist who he sees every 2-3 months and a therapist every 2-3 weeks at [facility]. Patient reports he suffers from PTSD and when he wakes up in the mornings and hears loud noises he becomes anxious and develops nausea. Patient also reports he wakesup with nasal congestion. Patient reports he normally does not vomit but this morning he attempted to drink coffee to take his morning medications and did vomit. Patient reports PCP is aware of his PTSD as well as his psychiatrist and therapist however he would like to inquire if he can be RX'd medication to help with the nausea (?zofran) in the mornings. Please review and advise. Thank you! Multiple (2) protocols were used on this call. Disposition for Call: See in Office or Video Visit within 3 Days Protocol Used: Nausea (Adult) Protocol-Based Disposition: See in Office or Video Visit within 3 Days Video visit not offered Positive Triage Questions: * Nausea lasts > 1 week * Unexplained nausea * All higher-acuity triage questions were negative Protocol Used: Nausea (Pediatric) Protocol-Based Disposition: Home Care Positive Triage Question: * Unexplained nausea * All higher-acuity triage questions were negative * Telephone Encounter - Delfino Mancera - 03/02/2025 11:48 AM EDT Symptoms: Vomiting, Anxiety or Panic Attack Outcome: Schedule an urgent appointment (within 4 hours) or talk to a nurse or provider soon Reason: Vomited at least once in the past 8 hours The caller accepted this outcome. Its been going on for weeks Contact pt at [phone] documented in this encounter Plan of Treatment Not on file documented as of this encounter Visit Diagnoses Not on filedocumented in this encounter Additional Health Concerns Assessment Noted Time PHQ-9 Depression Total Score: 12 025 10:56 AM EDT documented as of this encounter Care Teams Assistant Professor Of Surgery Relationship Specialty Start Date End Date Jesus Cote MD [address] [place] [address] PCP - General Internal Medicine 10/16/19 documented as of this encounter
--- OUTSIDE RECORDS SUMMARY | 2025-03-17 11:51 | XMS_ITS | Encounter Summary ---
Author Organization [employer] Address [address] [place] [address] 7 [place] [address] Care Team Providers Care Contour Sander Name Role Phone Jesus Cote MD Primary Care Prov ider Reason for Visit * Reason Onset Date Comments Med Refill 11/25/2023 Encounter Details Date Type Department Care Team (Late st Contact Info) Description 11/25/2023 Telephone [facility] MED [facility] PEDS [address] [place], [place] [phone] Jesus Cote MD 505 [place], [place] [phone] Med Refill Social History Tobacco Use Types [...] 800 MG tablet To be sent to: [facility]/pharmacy #[id number] - [place], [place] - [address] [place] [address] documented in this encounter Plan of Treatment Not on file documented as of this encounter Visit Diagnoses Not on filedocumented in this encounter Additional Health Concerns Assessment Noted Time PHQ-9 Depression Total Score: 10 024 1:16 PM EDT documented as of this encounter Care Teams Contour Sander Relationship Specialty Start Date End Date Jesus Cote MD [address] [place] [address] PCP - General Internal Medicine 10/16/19 documented as of this encounter
--- OUTSIDE RECORDS SUMMARY | 2025-03-17 11:51 | XMS_ITS | Encounter Summary ---
Author Organization [employer] Address [address] [facility] 7t [place] [address] Care Team Providers Care Spring Manufacturing Set Up Technician Name Role Phone Jesus Cote MD Primary Care Prov ider Encounter Details Date Type Department Care Team (Latest Contact Info) Description 01/08/2022 Abstract [facility] CONVERSIONS Dental, Provider, DDS Social History [...] on filedocumented in this encounter Care Teams Spring Manufacturing Set Up Technician Relationship Specialty Start Date End Date Jesus Cote MD [address] [place] [address] PCP - General Internal Medicine 10/16/19 documented as of this encounter
--- OUTSIDE RECORDS SUMMARY | 2025-03-17 11:51 | XMS_ITS | Encounter Summary ---
Author Organization [employer] Address [address] [facility] 7t [place] [address] Care Team Providers Care Certified Medical Biller Name Role Phone Jesus Cote MD Primary Care Prov ider Encounter Details Date Type Department Care Team (Latest Contact Info) Description 01/28/2019 Abstract [facility] CONVERSIONS Dental, Provider, DDS Social History Tobacco [...] on filedocumented in this encounter Care Teams Certified Medical Biller Relationship Specialty Start Date End Date Jesus Cote MD 505 [place] [address] PCP - General Internal Medicine 10/16/19 documented as of this encounter
--- OUTSIDE RECORDS SUMMARY | 2025-03-17 11:51 | XMS_ITS | Encounter Summary ---
Author Organization [employer] Address [address] [facility] 7t [place] [address] Care Team Providers Care Bottom Turning Lathe Tender Name Role Phone Jesus Cote MD Primary Care Prov ider Reason for Visit * Reason Onset Date Comments Referral 2022 Encounter Details Date Type Department Care Team ([facility] st Contact Info) Description 2022 Telephone [facility] MED & PEDS [address] [place], [place] [phone] Jesus Cote MD 505 [place] [address] Referral Social History Tobacco Use Types Packs/Day [...] 2022 3:00 PM EDT Referral faxed to [facility] pain management. Office will contact patient with appointment. Letter mailed to pt with information. * Telephone Encounter - Tara Perez - 2022 1:06 PM EDT Tc from pt requesting status on referral made on 11/14/2022. Please contact pt at [phone] Tunisian Speaker documented in this encounter Plan of Treatment Not on file documented as of this encounter Visit Diagnoses Not on filedocumented in this encounter Care Teams Bottom Turning Lathe Tender Relationship Specialty Start Date End Date Jesus Cote MD [address] [place] [address] PCP - General Internal Medicine 10/16/19 documented as of this encounter
--- OUTSIDE RECORDS SUMMARY | 2025-03-17 11:51 | XMS_ITS | Encounter Summary ---
Author Organization [employer] Address [address] [place] [address] 7t [place] [address] Care Team Providers Care Fluxer Name Role Phone Jesus Cote MD Primary Care Prov ider Reason for Visit * Reason Comments Med Change Request Encounter Details Date Type Department Care Team ([facility] st Contact Info) Description 08/27/2023 Refill C [facility] [address] [place], [place] [phone] Jesus Cote MD 505 [place], [place] [phone] Mild persistent asthma without complication Social History [...] documented as of this encounter Care Teams Fluxer Relationship Specialty Start Date End Date Jesus Cote MD [address] [place] [address] PCP - General Internal Medicine 10/16/19 documented as of this encounter
--- OUTSIDE RECORDS SUMMARY | 2025-03-17 11:51 | XMS_ITS | Encounter Summary ---
Author Organization [employer] Address [address] [facility] 7t [place] [address] Care Team Providers Care Natural History Collections Curator Name Role Phone Jesus Cote MD Primary Care Prov ider Encounter Details Date Type Department Care Team (Late st Contact Info) Description 05/12/2023 Abstract [facility] ADULT DENTAL [address] [place] [address] Placido Hendricks DDS [address] [place] [address] Social History Tobacco Use Types Packs/Day Years [...] on filedocumented in this encounter Care Teams Natural History Collections Curator Relationship Specialty Start Date End Date Jesus Cote MD [address] [place] [address] PCP - General Internal Medicine 10/16/19 documented as of this encounter
--- OUTSIDE RECORDS SUMMARY | 2025-03-17 11:51 | XMS_ITS | Encounter Summary ---
Author Organization [employer] Address [address] [facility] 7t [place] [address] Care Team Providers Care Small Parts Assembler Name Role Phone Jesus Cote MD Primary Care Prov ider Encounter Details Date Type Department Care Team (Late st Contact Info) Description 05/27/2023 Abstract [facility] ADULT DENTAL [address] [place] [address] Arina, Hilaria [address] [place] [address] Social History Tobacco Use Types Packs/Day Years [...] on filedocumented in this encounter Care Teams Small Parts Assembler Relationship Specialty Start Date End Date Jesus Cote MD [address] [place] [address] PCP - General Internal Medicine 10/16/19 documented as of this encounter
--- OUTSIDE RECORDS SUMMARY | 2025-03-17 11:51 | XMS_ITS | Clinical Summary ---
Author Organization [employer] Address [address] [facility] 7t [place] [address] Care Team Providers Care Industrial Education Teacher Name Role Phone Jesus Cote MD Primary [...] mouth if needed at bedtime. 3 Active EPINEPHrine (Epipen) 0.3 MG/0.3ML injection syringe Inject 0.3 mL (0.3 mg) as directed 1 (one) time for 1 dose. use as directed for allergic reaction and then call 911 0.3 mL 5 Active verapamil SR (Calan SR) 120 MG ER tabletIndications :Migraine without aura and without status migrainosus, not intractable TAKE 1 TABLET (120 MG) BY MOUTH AT BEDTIME. DO NOT CRUSH OR CHEW. 90 tablet 3 5 10/29/19 26 Active sildenafil (Viagra) 50 MG tablet Take 1 tablet (50 mg) by mouth if needed each day for erectile dysfunction. 20 tablet 5 Active fluticasone (Flonase) 50 MCG/ACT nasal spray SPRAY 1-2 SPRAYS INTO EACH NOSTRIL IN THE MORNING. SHAKE GENTLY. BEFORE FIRST USE, PRIME PUMP. AFTER USE, CLEAN TIP AND REPLACE CAP. 48 mL 3 5 Active fluticasone furoate (Arnuity Ellipta) 200 MCG/ACT inhalerIndication s:Mild persistent asthma without complication INHALE 1 PUFF BY MOUTH ONCE PER DAY 1 each 3 5 Active gabapentin (Neurontin) 800 MG tablet Take 1 tablet (800 mg) by mouth 3 times daily. 270 tablet 3 5 02/08/20 26 Active ibuprofen 800 MG tabletIndications :Pain in other joint Take 1 tablet (800 mg) by mouth every 8 (eight) hours if needed (pain). 90 tablet 3 5 Active montelukast (Singulair) 10 MG tablet Take 1 tablet (10 mg) by mouth at bedtime. 90 tablet 3 5 Active Ventolin HFA 108 (90 Base) MCG/ACT inhaler Inhale 1 puff in the morning, at noon, in the evening, and at bedtime. 18 g 3 5 Active Active Problems Problem Noted Date Diagnosed Date Benzodiazepine dependence, continuous ([facility]) 10/13/2024 Male erectile disorder (CODE) 10/13/2024 Assessment [...] allergic reactions to food, will send to sushi chef for evaluation, he has epipen Chronic pain syndrome 07/28/2023 Assessment & Plan (01/13/2024 10:53 PM EDT): Followd by pain management, on gabapentin and cymbalta Assessment & Plan (07/28/2023 7:57 PM EDT): Followed by pain management, he is also following neurosurgery, will follow reccomendations History of colon polyps 07/28/2023 Dental calculus 04/30/2023 Periodontal disease 04/30/2023 Crowded teeth 04/30/2023 Hemiplegia of dominant side (CMS/HCC) 10/06/2017 Assessment & Plan (07/28/2023 7:57 PM [...] 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 ([facility]/H[facility]) 10/06/2017 Assessment & Plan (07/28/2023 8:01 PM EDT): Followed by psych, no suicidal/homicidal ideas, continue current treatment Encounters Date Type Department Care Team Description 03/02/2025 Telephone [facility] MED & PEDS [address] [place] [address] Jesus Cote MD Nurse Triage 02/07/2025 1:00 PM EDT Office Visit [facility] MED & PEDS [address] [place] [address] Jesus Cote MD Mild persistent asthma without complication; Pain in other joint 02/07/2025 Travel 02/06/2025 Telephone [facility] MED & PEDS [address] [place] [address] Jesus Cote MD chart prep 01/22/2025 Refill [facility] MED & PEDS [address] [place] [address] Jesus Cote MD Pain in other joint [...] is your housing situation today? I have kayleightanja peterson 11/09/[address] you [...] Sign Reading Time Taken Comments Blood Pressure 135/94 02/07/2025 1:18 PM EDT Pulse 68 02/07/2025 1:18 PM EDT Temperature 36.9 C (98.4 F) 02/07/2025 1:18 PM EDT Respiratory Rate 20 02/07/2025 1:18 PM EDT Oxygen Saturation 98% 11/04/2022 1:56 PM EDT Inhaled Oxygen Concentration - - Weight 91.2 kg (201 lb) 02/07/2025 1:18 PM EDT Height 182.9 cm (6') 02/07/2025 1:18 PM EDT Body Mass Index 27.26 02/07/2025 1:18 PM EDT Plan of Treatment Health Maintenance Due Date Last Done Comments CT Colonography 1976 FIT DNA/Cologuard 1976 FIT 1976 FOBT 1976 Sigmoidoscopy 1976 Family Planning (PISQ) 12/02/1991 Hepatitis B [...] 04/30/2023, 0 01/08/2022, 10/26/2020, Additional history exists Dental X-Ray: Bitewings 05/01/2024 04/30/20, 01/08/2022, 02/08/2020, Additional history exists Tobacco Screening 06/02/2024 06/02/2023 COVID-19 Vaccine ( season) 2025 03/20/2022, 04/15/2021, 08/22/2020, Additional history exists Influenza Vaccine (#1) 2025 , 03/20/2022, 03/13/2021, Additional history exists Depression Monitoring 04/15/2025 10/13/2024, 025 Alcohol/Substance Use Screening 11/09/2025 11/09/2024 SDOH Screening 11/09/2025 11/09/2024 Disability Screening 02/07/2026 02/07/2025 Dental X-Ray: Full Mouth 05/01/2026 023, 09/19/2016, [...] Procedure Name Priority Date/Time Associated Diagnosis Comments LIPID PANEL, STANDARD Routine 10/14/2024 8:31 AM [...] Recently Relevant to Health Maintenance Results * (ABNORMAL) Lipid Panel, Standard (10/14/2024 8:31 AM EDT) Triglycerides 151(H) <150 mg/dL [facility] Comment:Desirable Triglyceri de: less than 150 mg/dLBorderline High Triglyceride 150-199 mg/dLHigh Triglyceride: 200-499 mg/dLVery High Triglyceride: greater than or equal to 5OO mg/dL Cholesterol 151 <200 mg/dL [facility] Comment:Desirable Cholestero l: less than 200 mg/dLBorderline High Cholesterol: 200-239 mg/dLHigh Cholesterol: greater than 239 mg/dL LDL Cholesterol Calculated 82 <100 mg/dL [facility] Comment:Desirable LDL: less than 100 mg/dLNear Optimal/Above Optimal LDL: 110- 129 mg/dLBorderline High LDL: 130-159 mg/dLHigh LDL: 160-189 mg/dLVery High LDL: greater than or equal to 190 mg/dL HDL Cholesterol 39(L) >40 mg/dL [facility] Comment:Desirable HDL: great er than 40 mg/dL Note: This HDL assay may give artificially low results in patients with liver disease. Blood Venous blood specimen / Unknown 10/14/2024 8:31 AM EDT 10/14/2024 2:51 PM EDT us Jesus Tan MD LAB BLOOD ORDERABL ES Final Result [facility] [address] [place] [address] [phone] * (ABNORMAL) Hm Colonoscopy (01/04/2024) Colonoscopy Abnormal(A ) Normal Narrative Allison Arambula RN - 01/04/2024 Repeat Colonoscopy in 5 years if polyps are adenomatous and due to a hx of adenomatous colon polyps. Historical Provider HEALTH MAINTENANCE Final Result * HEPATITIS C AB W/REFL TO HCV RNA, QN, PCR (12/27/2021 11:32 AM EDT) HEPATITIS C ANTIBODY NON-REACT NOREEN NON-REACT NOREEN [facility] INDEX 0.10 <1.00 [facility] Comment: HCV antibody was non-reactive. There is no laboratory evidence of HCV infection. In most cases, no further action is required. However, if recent HCV exposure is suspected, a test for HCV RNA (test code 28900) is suggested. For additional information please refer to http://[employer] [facility]/faq/OSM99j6 (This link is being provided for informational/ educational purposes only.) 12/27/2021 11:3 2 AM EDT Jesus Tan MD HISTORICAL/NON ORD ERABLE LABS Final Result [facility] [address] * HIV 1/2 ANTIGEN/ANTIBODY,FOURTH GENERATION W/RFL (12/27/2021 11:32 AM EDT) Pathologist [facility] HIV-1/2 ANTIGEN AND ANTIBODIES, 4TH GENERATION W/ REFLEX NON-REACT NOREEN NON-REACT NOREEN [facility] Comment: HIV-1 antigen and HIV-1/HIV-2 [...] purpose. For additional information please refer to http://[employer] [facility]/faq/ZUJ497 (This link is being provided for informational/ educational purposes only.) The performance of this assay has not been clinically validated in patients less than 2 years old. 12/27/2021 11:3 2 AM EDT Jesus Tan MD LAB BLOOD ORDERABL ES Final Result [facility] [address] [place] [phone], from Last 3 Months or Most Recently Relevant to Health Maintenance Insurance [facility] C3 DENTAL-[facility] MEDICAID [address] [place] [id number] [place] [phone] Care Teams Industrial Education Teacher Relationship Specialty Start Date End Date MichaelJesus Marcum MD [address] [place] [address] PCP - General Internal Medicine 10/16/19
--- OUTSIDE RECORDS SUMMARY | 2025-03-17 11:51 | XMS_ITS | Encounter Summary ---
Author Organization [employer] Address [address] [facility] 7t [place] [address] Care Team Providers Care Bumper Operator Name Role Phone Jesus Cote MD Primary Care Prov ider Reason for Visit * Reason Comments Med Refill Encounter Details Date Type Department Care Team ([facility] st Contact Info) Description 10/23/2023 Refill [facility] MED & PEDS [address] [place], [place] [phone] Wendy Mendosa MD [address] [place], [place] [phone] Migraine without aura and without status migrainosus, [...] documented as of this encounter Care Teams Bumper Operator Relationship Specialty Start Date End Date Jesus Cote, MD [address] [place] [address] PCP - General Internal Medicine 10/16/19 documented as of this encounter
--- OUTSIDE RECORDS SUMMARY | 2025-03-17 11:51 | XMS_ITS | Encounter Summary ---
Author Organization [employer] Address [address] [facility] 7t [place] [address] Care Team Providers Care Allergy And Immunology Specialist Name Role Phone Jesus Cote MD Primary Care Prov ider Encounter Details Date Type Department Care Team (Latest Contact Info) Description 02/08/2020 Abstract [facility] CONVERSIONS Dental, Provider, DDS Social [...] on filedocumented in this encounter Care Teams Allergy And Immunology Specialist Relationship Specialty Start Date End Date Jesus Cote MD [address] [place] [address] PCP - General Internal Medicine 10/16/19 documented as of this encounter
--- OUTSIDE RECORDS SUMMARY | 2025-03-17 11:51 | XMS_ITS | Encounter Summary ---
Author Organization [employer] Address [address] [facility] 7 [place] [address] Care Team Providers Care Corporate Claims Examiner Name Role Phone Jesus Cote MD Primary Care Prov ider Reason for Visit * Reason Onset Date Comments Referral 11/25/2023 Encounter Details Date Type Department Care Team (Late st Contact Info) Description 11/25/2023 Telephone C [facility] [address] [place], [place] [phone] Jesus Cote MD [address] [place] [address] Referral Social History Tobacco Use Types Packs/Day [...] he requested on last visit for an short filler bunch machine operator. Please callpt to clarify. documented in this encounter Plan of Treatment Not on file documented as of this encounter Visit Diagnoses Diagnosis Pain in other joint documented in this encounter Additional Health Concerns Assessment Noted Time PHQ-9 Depression Total Score: 10 024 1:16 PM EDT documented as of this encounter Care Teams Corporate Claims Examiner Relationship Specialty Start Date End Date Jesus Cote MD [address] [place] [id number] PCP - General Internal Medicine 10/16/19 documented as of this encounter
[2025-03-18 05:33] LABS: Follicle Stimulating Hormone 9.7 mIU/mL (1.4-12.8)
[2025-03-23 22:24] LABS: Testosterone, Free 68.5 pg/mL (35.0-155.0)
[2025-04-03 02:53] LABS: Estradiol Free 0.25 pg/mL; Estradiol, Ultrasensitive 11 pg/mL (< OR = 29)
== END 2025-03-17 10:30 | disposition home or self-care (01) ==
LOC: HO.LAB 10:29
PROVIDERS: PCP Internal Medicine; Visit Provider Urology
DX: N52.01 Erectile dysfunction due to arterial insufficiency (principal)
CPT/HCPCS: 36415; 82670; 82681; 83001; 83002; 84402; 84403

== ENCOUNTER 2025-04-04 11:24 | Outpatient (AMB) | payer MEDICAID, SELFPAY ==
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
--- OUTSIDE RECORDS SUMMARY | 2025-04-05 02:03 | XMS_ITS | Clinical Summary ---
Author Organization [employer] Address [address] [place] [address] Care Team Providers Care Bus Cleaner Name Role Phone Jesus Cote MD Primary [...] Noted Date Diagnosed Date Benzodiazepine dependence, continuous ([facility]) 10/13/2024 Male erectile disorder (CODE) 10/13/2024 Assessment [...] allergic reactions to food, will send to microsoft bi developer for evaluation, he has epipen Chronic pain syndrome 07/28/2023 Assessment & Plan (01/13/2024 10:53 PM EDT): Followd by pain management, on gabapentin and cymbalta Assessment & Plan (07/28/2023 7:57 PM EDT): Followed by pain management, he is also following neurosurgery, will follow reccomendations History of colon polyps 07/28/2023 Dental calculus 04/30/2023 Periodontal disease 04/30/2023 Crowded teeth 04/30/2023 Hemiplegia of dominant side ([facility]) 10/06/2017 Assessment & Plan (07/28/2023 7:57 PM [...] 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 [address] [place] [address] Jesus Cote MD Nurse Triage 02/07/2025 1:00 PM EDT Office Visit [facility] [address] [place] [address] Jesus Cote MD Mild persistent asthma without complication; Pain in other joint 02/07/2025 Travel 02/06/2025 Telephone [facility] [address] [place] [address] Jesus Cote MD chart prep 01/22/2025 Refill [facility] [address] [place] [address] Jesus Cote MD Pain in other joint [...] 02/07/2025 1:18 PM EDT Plan of Treatment Upcoming Encounters Date Type Department Care Team (Late st Contact Info) Description 07/14/2025 9:30 AM EST Office Visit [facility] OPT[facility] [address] [place], [place] [phone] Sree, Delilah, OD [address] [place], [place] [phone] Health Maintenance Due Date Last Done Comments CT Colonography 1975 FIT DNA/Cologuard 1975 FIT 1975 FOBT 1975 Sigmoidoscopy 1975 Family Planning (PISQ) 12/02/1991 Hepatitis B Vaccines (3 of 3 - 19+ 3-dose series) 02/28/2010 01/03/2010, 12/21/2008 Pneumococcal Vaccine: Pediatrics (0 to 5 Years) and At-Risk Patients (6 to 49) Years (2 of 2 - PCV) 07/07/2015 07/07/2014 Dental Oral Exam 10/31/2023 04/30/2023, , 02/08/2020, Additional history exists Dental Prophylaxis 10/31/2023 04/30/2023, 0 01/08/2022, 10/26/2020, Additional history exists Dental X-Ray: Bitewings 05/01/2024 04/30/20, 01/08/2022, 02/08/2020, Additional history exists Tobacco Screening 06/02/2024 06/02/2023 COVID-19 Vaccine ( season) 2025 03/20/2022, 04/15/2021, 08/22/2020, Additional history exists Depression Monitoring 04/15/2025 10/13/2024, 025 Alcohol/Substance Use Screening 11/09/2025 11/09/2024 SDOH Screening 11/09/2025 11/09/2024 Disability Screening 02/07/2026 02/07/2025 Dental X-Ray: Full Mouth 05/01/2026 023, 09/19/2016, 09/06/2010 Zoster Vaccines (1 of 2) 2026 Colonoscopy 01/03/2029 01/04/2024 Colorectal Cancer Screening 01/03/2029 Lipid Panel 10/14/2029 10/14/2024, 12/27/2021 DTaP/Tdap/Td Vaccines (3 - Td or Tdap) 03/12/2035 03/12/2025, 06/16/2012 RSV Patients and Patients Aged 60 years or older (1 - 1-dose 75+ series) 12/02/2051 HIV Screening Completed 12/27/2021 Hepatitis C Screening Completed 12/27/2021 Influenza Vaccine Completed 03/12/2025, , 03/20/2022, Additional history exists HIB Vaccines Aged Out [...] Procedure Name Priority Date/Time Associated Diagnosis Comments ESTRADIOL, FREE Routine 03/17/2025 10:39 AM EDT TESTOSTERONE, FREE (DIALYSIS) AND TOTAL,MS Routine 03/17/2025 10:39 AM EDT LH Routine 03/17/2025 10:39 AM EDT FSH Routine 03/17/2025 10:39 AM EDT LIPID PANEL, STANDARD Routine 10/14/2024 8:31 AM [...] Recently Relevant to Health Maintenance Results * Estradiol, Free (03/17/2025 10:39 AM EDT) Pathologist [facility] Estradiol, Free 0.25 pg/mL [facility] Comment:Reference Range:ADUL TS: < OR = 0.45 Estradiol, Ultrasensitive, LC/MS 11 < OR = 29 pg/mL [facility] Comment:This test was develo ped and its analytical performancecharacteristics have been determined by [employer].It has not been cleared or approved by the FDA. This assayhas been validated pursuant to the CLIA regulations and isused for clinical purposes.THIS TEST WAS PERFORMED AT:[employer] [id number] [place] [id number] MORALES MD,PHD,DESIRAE 03/17/2025 10:3 9 AM EDT 03/17/2025 10:39 AM EDT us Generic External Data Provider LAB BLOOD ORDERAB LES Final Result Performing Organization Address City/[facility]/ZIP Co de Phone Number [facility] [address] [place] [address] [phone] * Testosterone, Free (Dialysis) And Total, MS (03/17/2025 10:39 AM EDT) Testosterone, Total 431 250 - 1100 ng/dL [facility] Comment:For additional infor mation, please refer tohttp://education.[employer]/faq/EusqzFcivwfsozjvbXUGFNKVUR175(This link is being provided for informational/educational purposes only.)This test was developed and its analytical performancecharacteristics have been determined by [employer] [place], [place]. It hasnot been cleared or approved by the U.S. Food and DrugAdministration. This assay has been validated pursuantto the CLIA regulations and is used for clinicalpurposes. Testosterone, Free 68.5 35.0 - 155.0 pg/mL [facility] Comment:This test was develo ped and its analytical performancecharacteristics have been determined by [employer] [place], [place]. It hasnot been cleared or approved by the U.S. Food and DrugAdministration. This assay has been validated pursuantto the CLIA regulations and is used for clinicalpurposes.THIS TEST WAS PERFORMED AT:[employer] [id number] [place] [phone] DARNELL MD,PHD 03/17/2025 10:3 9 AM EDT 03/17/2025 10:39 AM EDT us Generic External Data Provider LAB BLOOD ORDERAB LES Final Result Performing Organization Address City/[facility]/ZIP Co de Phone Number [facility] [address] [place] [phone] * LH (03/17/2025 10:39 AM EDT) Lutenizing Hormone 4.4 1.5 - 9.3 mIU/mL [facility] Comment:THIS TEST WAS PERFOR MED AT:[facility] [place] [id number] MUJICA MD 03/17/2025 10:3 9 AM EDT 03/17/2025 10:39 AM EDT Generic External Data Provider LAB BLOOD ORDERAB LES Final Result Performing Organization Address City/[facility]/ZIP Co de Phone Number [facility] [address] [place] [address] [phone] * FSH (03/17/2025 10:39 AM EDT) Follicle Stimulating Hormone 9.7 1.4 - 12.8 mIU/mL [facility] Comment:THIS TEST WAS PERFOR MED AT:[facility] [place] [address]XQKJUJUANCARLOS MUJICA MD 03/17/2025 10:3 9 AM EDT 03/17/2025 10:39 AM EDT Generic External Data Provider LAB BLOOD ORDERAB LES Final Result Performing Organization Address City/[facility]/ZIP Co de Phone Number [facility] [address] [place] [address] [phone] * (ABNORMAL) Lipid Panel, Standard (10/14/2024 8:31 AM EDT) Triglycerides 151(H) <150 mg/dL [facility] Comment:Desirable Triglyceri de: less than 150 mg/dLBorderline High Triglyceride 150-199 mg/dLHigh Triglyceride: 200-499 mg/dLVery High Triglyceride: greater than or equal to 5OO mg/dL Cholesterol 151 <200 mg/dL [facility] Comment:Desirable Cholestero l: less than 200 mg/dLBorderline High Cholesterol: 200-239 mg/dLHigh Cholesterol: greater than 239 mg/dL LDL Cholesterol Calculated 82 <100 mg/dL [facility] Comment:Desirable LDL: less than 100 mg/dLNear Optimal/Above Optimal LDL: 110- 129 mg/dLBorderline High LDL: 130-159 mg/dLHigh LDL: 160-189 mg/dLVery High LDL: greater than or equal to 190 mg/dL HDL Cholesterol 39(L) >40 mg/dL [facility] Comment:Desirable HDL: great er than 40 mg/dL Note: This HDL assay may give artificially low results in patients with liver disease. Blood Venous blood specimen / Unknown 10/14/2024 8:31 AM EDT 10/14/2024 2:51 PM EDT Jesus Tan MD LAB BLOOD ORDERABL ES Final Result [facility] [address] [place] [phone] * (ABNORMAL) Colonoscopy (01/04/2024) Colonoscopy Abnormal(A ) Normal Narrative Allison Arambula RN - 01/04/2024 Repeat Colonoscopy in 5 years if polyps are adenomatous and due to a hx of adenomatous colon polyps. Nalini Magaña MD HEALTH MAINTENANCE Final Result * HEPATITIS C AB W/REFL TO HCV RNA, QN, PCR (12/27/2021 11:32 AM EDT) HEPATITIS C ANTIBODY NON-REACT NOREEN NON-REACT [facility]EN [facility] INDEX 0.10 <1.00 [facility] Comment: HCV antibody was non-reactive. There is no laboratory evidence of HCV infection. In most cases, no further action is required. However, if recent HCV exposure is suspected, a test for HCV RNA (test code 03000) is suggested. For additional information please refer to http://education.Terarecon/faq/EQT62z0 (This link is being provided for informational/ educational purposes only.) 12/27/2021 11:3 2 AM EDT Jesus Tan MD HISTORICAL/NON ORD ERABLE LABS Final Result Performing Organization Address [facility] de Phone Number [facility] [address] * HIV 1/2 ANTIGEN/ANTIBODY,FOURTH GENERATION W/RFL (12/27/2021 11:32 AM EDT) HIV-1/2 ANTIGEN AND ANTIBODIES, 4TH GENERATION W/ REFLEX NON-REACT NOREEN NON-REACT NOREEN [facility] Comment: HIV-1 antigen and HIV-1/HIV-2 [...] purpose. For additional information please refer to http://education.[employer]/faq/MVB367 (This link is being provided for informational/ educational purposes only.) The performance of this assay has not been clinically validated in patients less than 2 years old. 12/27/2021 11:3 2 AM EDT Jesus Tan MD LAB BLOOD ORDERABL ES Final Result Performing Organization Address [facility] Phone Number [facility] [address] from Last 3 Months or Most Recently Relevant to Health Maintenance [facility] * Guarantor: Maxi Zhao Account Type Relation to Patient Date of Phone Billing Address Dental Self [address] [address] [facility] [address] [place] [phone] Care Teams Bus Cleaner Relationship Specialty Start Date End Date Jesus Cote MD [address] [place] [phone] PCP - General Internal Medicine 10/16/19
--- OUTSIDE RECORDS SUMMARY | 2025-04-05 02:04 | XMS_ITS | Encounter Summary ---
Author Organization [employer] Address [address] [place] [address] Care Team Providers Care Lockstitch Hemmer Name Role Phone Jesus Cote MD Primary Care Prov ider Reason for Visit * Reason Onset Date Comments Nurse Triage 03/02/2025 Encounter Details Date Type Department Care Team (Late st Contact Info) Description 03/02/2025 Telephone [facility] [address] [place], [place] [phone] Jesus Cote MD [address] [place], [place] [phone] Nurse Triage Social History Tobacco Use Types [...] 12:13 PM EDT TC placed to patient [phone] in regards to below message. Patient reports has been waking up nauseous >1 week. Patient reports he has a psychiatrist who he sees every 2-3 months and a therapist every 2-3 weeks at [facility]. Patient reports he suffers from PTSD [...] going on for weeks Contact pt at [phone] documented in this encounter Plan of Treatment Upcoming Encounters Date Type Department Care Team (Late st Contact Info) Description 07/14/2025 9:30 AM EST Office Visit [facility] OPTOMETRY [address] [place] [address] Sree, Delilah, OD [address] [place] [address] documented as of this encounter Visit Diagnoses Not on filedocumented in this encounter Additional Health Concerns Assessment Noted Time PHQ-9 Depression Total Score: 12 025 10:56 AM EDT documented as of this encounter Care Teams Lockstitch Hemmer Relationship Specialty Start Date End Date Jesus Cote MD [address] [place] [address] PCP - General Internal Medicine 10/16/19 documented as of this encounter
--- OUTSIDE RECORDS SUMMARY | 2025-04-05 02:04 | XMS_ITS | Encounter Summary ---
Author Organization [employer] Address 75 [facility] 7t [place] [address] Care Team Providers Care Pull Over Machine Operator Name Role Phone Jesus Cote MD Primary Care Prov ider Reason for Visit * Reason Comments Med Refill Encounter Details Date Type Department Care Team (Late Contact Info) Description 10/23/2023 Refill [facility] CHC MED & PEDS [address] [place], [place] [phone] Wendy Mendosa MD [address] [place], [place] [phone] Migraine without aura and without status migrainosus, [...] as of this encounter Plan of Treatment Upcoming Encounters Date Type Department Care Team (Late Contact Info) Description 07/14/2025 9:30 AM EST Office Visit [facility] OPTOMETRY [address] [place], [place] [phone] Delilah Balbuena, OD [address] [place], [place] [phone] documented as of this encounter Visit Diagnoses Diagnosis Migraine without aura and without status migrainosus, not intractable documented in this encounter Additional Health Concerns Assessment Noted Time PHQ-9 Depression Total Score: 10 024 1:16 PM EDT documented as of this encounter Care Teams Pull Over Machine Operator Relationship Specialty Start Date End Date Jesus Cote MD [address] [place] [address] PCP - General Internal Medicine 10/16/19 documented as of this encounter
--- OUTSIDE RECORDS SUMMARY | 2025-04-05 02:04 | XMS_ITS | Encounter Summary ---
Author Organization [employer] Address 75 [facility] 7t [place] [address] Care Team Providers Care License Registration Examiner Name Role Phone Jesus Cote MD Primary Care Prov ider Reason for Visit * Reason Comments Med Change Request Encounter Details Date Type Department Care Team (Late Contact Info) Description 08/27/2023 Refill [facility] CHC MED & PEDS [address] [place], [place] [phone] Jesus Cote MD [address] [place] [address] Mild persistent asthma without complication Social History [...] Description 07/14/2025 9:30 AM EST Office Visit [facility] OPTOMETRY [address] [place], [place] [phone] Delilah Balbuena, OD [address] [place], [place] [phone] documented as of this encounter Visit Diagnoses Diagnosis Mild persistent asthma without complication documented in this encounter Additional Health Concerns Assessment Noted Time PHQ-9 Depression Total Score: 10 024 1:16 PM EDT documented as of this encounter Care Teams License Registration Examiner Relationship Specialty Start Date End Date Jesus Cote MD [address] [place] [address] PCP - General Internal Medicine 10/16/19 documented as of this encounter
--- OUTSIDE RECORDS SUMMARY | 2025-04-05 02:06 | XMS_ITS | Encounter Summary ---
Author Organization [email or web address] Address 75 [facility] 7t [place] [address] Care Team Providers Care Rn Psych Name Role Phone Jesus Cote MD Primary Care Prov ider Reason for Visit * Reason Onset Date Comments Referral 2022 Encounter Details Date Type Department Care Team ([facility] st Contact Info) Description 2022 Telephone [facility] CHC MED & PEDS 505 [place], [place] [phone] Jesus Cote MD 505 [place] [address] Referral Social History Tobacco Use Types Packs/Day [...] 2022 3:00 PM EDT Referral faxed to [facility] pain management. Office will contact patient with appointment. Letter mailed to pt with information. * Telephone Encounter - Tara Perez - 2022 1:06 PM EDT Tc from pt requesting status on referral made on 11/14/2022. Please contact pt at [phone] Uzbek Speaker documented in this encounter Plan of Treatment Upcoming Encounters Date Type Department Care Team (Late st Contact Info) Description 07/14/2025 9:30 AM EST Office Visit [facility] OPTOMETRY [address] [place] [address] Sree, Delilah, OD [address] [place] [address] documented as of this encounter Visit Diagnoses Not on filedocumented in this encounter Care Teams Rn Psych Relationship Specialty Start Date End Date Jesus Cote MD [address] [place] [address] PCP - General Internal Medicine 10/16/19 documented as of this encounter
--- OUTSIDE RECORDS SUMMARY | 2025-04-05 02:06 | XMS_ITS | Encounter Summary ---
Author Organization [employer] Address 75 [facility] 7 [place] [address] Care Team Providers Care Harness Installer Name Role Phone Jesus Cote MD Primary Care Prov ider Encounter Details Date Type Department Care Team (Late st Contact Info) Description 05/12/2023 Abstract [facility] ADULT DENTAL [address] [place] [address] Placido Hendricks DDS [address] [place] [address] Social History Tobacco Use Types Packs/Day Years [...] Description 07/14/2025 9:30 AM EST Office Visit [facility] OPTOMETRY [address] [place] [address] Sree, Delilah, OD 230 [place] [address] documented as of this encounter Visit Diagnoses Not on filedocumented in this encounter Care Teams Harness Installer Relationship Specialty Start Date End Date Jesus Cote MD 505 [place] [address] PCP - General Internal Medicine 10/16/19 documented as of this encounter
--- OUTSIDE RECORDS SUMMARY | 2025-04-05 02:06 | XMS_ITS | Encounter Summary ---
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 Please callpt to clarify. documented in this encounter Plan of Treatment Upcoming Encounters Date Type Department Care Team (Late st Contact Info) Description 07/14/2025 9:30 AM EST Office Visit [facility] OPTOMETRY [address] [place] [address] Sree, Delilah, OD [address] [place] [address] documented as of this encounter Visit Diagnoses Diagnosis Pain in other joint documented in this encounter Additional Health Concerns Assessment Noted Time PHQ-9 Depression Total Score: 10 024 1:16 PM EDT documented as of this encounter Care Teams Education Officer Relationship Specialty Start Date End Date Jesus Cote MD [address] [place] [address] PCP - General Internal Medicine 10/16/19 documented as of this encounter
--- OUTSIDE RECORDS SUMMARY | 2025-04-05 02:06 | XMS_ITS | Encounter Summary ---
Author Organization [employer] Address [address] [place] [address] 7 [place] [address] Care Team Providers Care Flight Dispatcher Name Role Phone Jesus Cote MD Primary Care Prov ider Reason for Visit * Reason Onset Date Comments Med Refill 11/25/2023 Encounter Details Date Type Department Care Team (Late st Contact Info) Description 11/25/2023 Telephone [facility] CHC MED & PEDS 505 [place], [place] [phone] Jesus Cote MD [address] [place], [place] [phone] Med Refill Social History Tobacco Use Types [...] 800 MG tablet To be sent to: [facility]/pharmacy #[id number] - [place], [place] - [address] [place] [address] documented in this encounter Plan of Treatment Upcoming Encounters Date Type Department Care Team (Late st Contact Info) Description 07/14/2025 9:30 AM EST Office Visit [facility] OPTOMETRY [address] [place] [address] SreeGetn, OD [address] [place] [address] documented as of this encounter Visit Diagnoses Not on filedocumented in this encounter Additional Health Concerns Assessment Noted Time PHQ-9 Depression Total Score: 10 024 1:16 PM EDT documented as of this encounter Care Teams Flight Dispatcher Relationship Specialty Start Date End Date Jesus Cote MD [address] [place] [address] PCP - General Internal Medicine 10/16/19 documented as of this encounter
--- OUTSIDE RECORDS SUMMARY | 2025-04-05 02:07 | XMS_ITS | Encounter Summary ---
Author Organization [employer] Address 75 [facility] 7t [place] [address] Care Team Providers Care Farm Advisor Name Role Phone Jesus Cote MD Primary Care Prov ider Encounter Details Date Type Department Care Team (Latest Contact Info) Description 01/08/2022 Abstract [facility] CONVERSIONS Dental, Provider, DDS Social History [...] Description 07/14/2025 9:30 AM EST Office Visit [facility] OPTOMETRY [address] [place] [address] Sree, Delilah, OD [address] [place] [address] documented as of this encounter Visit Diagnoses Not on filedocumented in this encounter Care Teams Farm Advisor Relationship Specialty Start Date End Date Jesus Cote MD 505 [place] [address] PCP - General Internal Medicine 10/16/19 documented as of this encounter
--- OUTSIDE RECORDS SUMMARY | 2025-04-05 02:07 | XMS_ITS | Encounter Summary ---
Author Organization [employer] Address 75 [facility] 7t [place] [address] Care Team Providers Care Optometrist/Practice Owner Name Role Phone Jesus Cote MD Primary Care Prov ider Encounter Details Date Type Department Care Team (Latest Contact Info) Description 01/28/2019 Abstract [facility] CONVERSIONS Dental, Provider, DDS Social History Tobacco [...] 9:30 AM EST Office Visit [facility] OPTOMETRY [address] [place] [address] Sree, Delilah, OD [address] [place] [address] documented as of this encounter Visit Diagnoses Not on filedocumented in this encounter Care Teams Optometrist/Practice Owner Relationship Specialty Start Date End Date Jesus Cote MD [address] [place] [address] PCP - General Internal Medicine 10/16/19 documented as of this encounter
--- OUTSIDE RECORDS SUMMARY | 2025-04-05 02:07 | XMS_ITS | Encounter Summary ---
Author Organization [employer] Address 75 [facility] 7t [place] [address] Care Team Providers Care Errand Runner Name Role Phone Jesus Cote MD Primary Care Prov ider Encounter Details Date Type Department Care Team (Latest Contact Info) Description 02/08/2020 Abstract [facility] CONVERSIONS Dental, Provider, DDS Social History [...] Description 07/14/2025 9:30 AM EST Office Visit [facility] OPTOMETRY [address] [place] [address] Sree, Delilah, OD [address] [place] [address] documented as of this encounter Visit Diagnoses Not on filedocumented in this encounter Care Teams Errand Runner Relationship Specialty Start Date End Date Jesus Cote MD 505 [place] [address] PCP - General Internal Medicine 10/16/19 documented as of this encounter
--- OUTSIDE RECORDS SUMMARY | 2025-04-05 02:07 | XMS_ITS | Encounter Summary ---
Author Organization [employer] Address 75 [facility] 7t [place] [address] Care Team Providers Care Coat Cutter Name Role Phone Jesus Cote MD Primary Care Prov ider Encounter Details Date Type Department Care Team (Late st Contact Info) Description 05/27/2023 Abstract [facility] ADULT DENTAL [address] [place] [address] Arina, Hilaria [address] [place] [address] Social History Tobacco Use Types Packs/Day Years [...] Description 07/14/2025 9:30 AM EST Office Visit [facility] OPTOMETRY [address] [place] [address] SreeGetn, OD [address] [place] [address] documented as of this encounter Visit Diagnoses Not on filedocumented in this encounter Care Teams Coat Cutter Relationship Specialty Start Date End Date Jesus Cote MD [address] [place] [address] PCP - General Internal Medicine 10/16/19 documented as of this encounter
== END 2025-04-04 12:20 | disposition home or self-care (01) ==
LOC: HO.HUSH 11:24
PROVIDERS: PCP Internal Medicine; Visit Provider Nurse Practitioner Family
DX: N39.41 Urge incontinence (principal); R39.15 Urgency of urination; N52.01 Erectile dysfunction due to arterial insufficiency
CPT/HCPCS: 99214

== ENCOUNTER → 2025-04-04 11:24 | Outpatient (BNVA) | payer MEDICAID, SELFPAY | PROVIDERS: PCP Internal Medicine; Visit Provider Nurse Practitioner Family | DX: N52.01 Erectile dysfunction due to arterial insufficiency (principal) | CPT/HCPCS: 81003; 99212 ==